=== PATIENT | female | born 1995 | race Caucasian/White ===

== ENCOUNTER 2016-05-27 17:00 | Emergency (ER) | payer OTHER | END 2016-05-27 17:45 | disposition home or self-care (01) | DX: J06.9 Acute upper respiratory infection, unspecified (principal); B97.89 Other viral agents as the cause of diseases classified elsewhere; J45.909 Unspecified asthma, uncomplicated; K21.9 Gastro-esophageal reflux disease without esophagitis; M79.7 Fibromyalgia; F17.200 Nicotine dependence, unspecified, uncomplicated ==

== ENCOUNTER 2016-06-11 13:50 | Outpatient (CLI) | payer OTHER | END 2016-06-11 13:51 | disposition home or self-care (01) | DX: S93.491A Sprain of other ligament of right ankle, initial encounter (principal); M65.9 Synovitis and tenosynovitis, unspecified ==

== ENCOUNTER 2016-07-11 11:50 | Emergency (ER) | payer OTHER | END 2016-07-11 14:04 | disposition home or self-care (01) | DX: O26.891 Other specified pregnancy related conditions, first trimester (principal); R10.9 Unspecified abdominal pain; O99.331 Smoking (tobacco) complicating pregnancy, first trimester; O99.351 Diseases of the nervous system complicating pregnancy, first trimester; M79.7 Fibromyalgia; Z3A.01 Less than 8 weeks gestation of pregnancy; J45.909 Unspecified asthma, uncomplicated; K21.9 Gastro-esophageal reflux disease without esophagitis ==

== ENCOUNTER 2016-09-23 13:49 | Emergency (ER) | payer OTHER ==
[2016-09-23] MEDS ORDERED: SODIUM CHLORIDE 0.9% 1,000 ML IV ONE (14:57)
[2016-09-23] MEDS ORDERED: LACTATED RINGERS 1,000 ML IV STA (15:55)
== END 2016-09-23 17:21 ==
DX: O60.02 Preterm labor without delivery, second trimester (principal); O16.2 Unspecified maternal hypertension, second trimester; Z3A.17 17 weeks gestation of pregnancy; J45.909 Unspecified asthma, uncomplicated; K21.9 Gastro-esophageal reflux disease without esophagitis; M79.7 Fibromyalgia

== ENCOUNTER 2016-09-23 17:15 | Outpatient (CLI) | payer OTHER | END 2016-09-23 20:00 | disposition home or self-care (01) | DX: O42.912 Preterm premature rupture of membranes, unspecified as to length of time between rupture and onset of labor, second trimester (principal); O16.2 Unspecified maternal hypertension, second trimester; O99.212 Obesity complicating pregnancy, second trimester; E66.9 Obesity, unspecified; Z3A.17 17 weeks gestation of pregnancy ==

== ENCOUNTER 2016-10-31 17:06 | Emergency (ER) | payer OTHER ==
--- NOTE | 2016-10-31 17:52 | ED Physician Documentation ---
PD HPI MHE - Stated complaint Stated Complaint: MHE - Chief complaint Chief Complaint: MHE - History obtained from History obtained from: Patient - History of Present Illness Primary symptom: Suicidal ideation Timing - onset: Chronic Pain level max: 0 Pain level now: 0 Contributing factors: No: Family, Sig other, Work, School, Money, Legal, Substance abuse - ETOH, Substance abuse - drugs, Off meds, Out of meds Similar symptoms before: Diagnosis (depression) Recently seen: Not recently seen - Additional information Additional information: Patient is a 21-year-old female who presents to the emergency department with vague suicidal ideation over the past few weeks. Has a psychiatrist that she sees monthly and a counselor that she sees weekly. Her next appointment is in 2 days. She was sent here for evaluation tonight because of increasing suicidal ideation over the past few weeks. Does not currently have a plan. Has been hospitalized once in the past approximately 15 years ago. Review of Systems Ten Systems: 10 systems reviewed and negative Constitutional: denies: Fever, Chills Ears: denies: Ear pain Nose: denies: Rhinorrhea / runny nose, Congestion Cardiac: denies: Chest pain / pressure Respiratory: denies: Cough, Wheezing GI: denies: Abdominal Pain, Nausea, Vomiting, Diarrhea : denies: Dysuria Skin: denies: Rash Musculoskeletal: denies: Neck pain, Back pain Neurologic: denies: Focal weakness, Numbness, Headache PD PAST MEDICAL HISTORY - Past Medical History Cardiovascular: Hypertension Respiratory: Asthma Neuro: Headache/migraine Endocrine/Autoimmune: Other GI: GERD 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 : None HEENT: None Psych: Depression, Anxiety, Bipolar disorder Musculoskeletal: Fibromyalgia, Other Derm: None - Past Surgical History Past Surgical History: Yes Ortho: Other - Present Medications Home Medications: Ambulatory Orders Medication Instructions Recorded Confirmed metFORMIN [Glucophage] 500 mg PO BID 05/25/15 10/31/16 Citalopram [CeleXA] 40 mg PO DAILY 08/16/15 10/31/16 Omeprazole [PriLOSEC] 20 mg ORAL DAILY 12/13/15 10/31/16 buPROPion [Wellbutrin Xl] 150 mg ORAL DAILY 12/13/15 10/31/16 Ibuprofen [Motrin] 800 mg PO Q8H PRN #30 tablet 04/16/16 10/31/16 Propranolol [Inderal] 20 mg PO DAILY 10/31/16 10/31/16 cloNIDine [Catapres] 1 tab PO DAILY PM 10/31/16 10/31/16 - Allergies Allergies/Adverse Reactions: Allergies Allergy/AdvReac Type Severity Reaction Status Date / Time No Known Drug Allergies Allergy Verified 10/31/16 17:21 - Social History Does the pt smoke?: No Smoking Status: Never smoker Does the pt drink ETOH?: No Does the pt have substance abuse?: No - Immunizations Immunizations are current?: Yes - POLST Patient has POLST: No PD ED PE NORMAL - Vitals Vital signs reviewed: Yes - General General: Alert and oriented X 3, No acute distress, Well developed/nourished - HEENT HEENT: PERRL, Moist mucous membranes - Neck Neck: Supple, no meningeal sign - Cardiac Cardiac: RRR, No murmur - Respiratory Respiratory: Clear bilaterally - Abdomen Abdomen: Normal bowel sounds, Soft, Non tender, Non distended - Derm Derm: Warm and dry - Extremities Extremities: Other (no cut ellis) - Neuro Neuro: Alert and oriented X 3 - Psych Psych: Normal mood, Normal affect Results - Vitals Vitals: Vital Signs - 24 hr 10/31/16 10/31/16 17:18 17:55 Temperature 36.4 C L Heart Rate 91 84 Respiratory 14 Rate Blood Pressure 124/85 H 134/90 H O2 Saturation 100 Oxygen O2 Source Room air PD MEDICAL DECISION MAKING - ED course Complexity details: reviewed old records, considered differential, d/w patient, d/w family ED course: Patient is a 21-year-old female with a long history of depression. Has been having suicidal thoughts recently, but no plan. She is able to contract for safety here. [facility] will not be dispatched by [facility] for voluntary patients. Gave the patient and her family the option of going home tonight and return in the morning for evaluation or staying here in the emergency department if they felt uncomfortable. As she is able to contract for safety, family is comfortable watching her at home and will return sooner if she worsens. Otherwise will plan to return in the morning for evaluation by social work. Patient and family counseled regarding signs and symptoms for which I believe and urgent re-evaluation would be necessary. Patient with good understanding of and agreement to plan and is comfortable going home at this time This document was made in part using voice recognition software. While efforts are made to proofread this document, sound alike and grammatical errors may occur. Departure - Departure Disposition: 01 Home, Self Care Clinical Impression: Depression Qualifiers: Depression Type: unspecified Qualified Code(s): F32.9 - Major depressive disorder, single episode, unspecified Condition: Good Instructions: ED Depression Follow-Up: Return,in the morning for further evaluation [Other] Comments: Return in the morning for further evaluation. Return sooner tonight if you worsen. Crisis Line Discharge Date/Time: 10/31/16 17:55
[2016-10-31 18:11] VITALS: BP 134/90
== END 2016-10-31 17:55 | disposition home or self-care (01) ==
LOC: ED 17:06
DX: F32.9 Major depressive disorder, single episode, unspecified (principal); R45.851 Suicidal ideations; I10 Essential (primary) hypertension
CPT/HCPCS: 99283

== ENCOUNTER 2016-11-01 07:45 | Emergency (ER) | payer OTHER ==
--- NOTE | 2016-11-01 07:53 | ED Physician Documentation ---
PD HPI MHE - Stated complaint Stated Complaint: MHE - History obtained from History obtained from: Patient - History of Present Illness Primary symptom: Suicidal ideation (without particular plan, but has had some urge feelings in the past few days. Did okay last night without any strong urges. Denies self harm, ingestions, alcohol nor drug use. Was here yesterday and contracted for safety overnight. Back today to talk with about possible inpatient treatment.). No: Suicide attempt Timing - onset: How many weeks ago (1-2 weeks or more of worsened depression, and has had suicidal urges without plan the past several days. Sees counselor weekly and psychiatrist monthly.) Contributing factors: No: Substance abuse - ETOH (not currently, had problems in the past.), Substance abuse - drugs Similar symptoms before: Diagnosis (depression) Recently seen: Clinic, Emergency Dept (yesterday and returned today to be able to talk with SW, who was out of hospital at time of ED visit yesterday.) Review of Systems Constitutional: denies: Fever, Chills Nose: denies: Rhinorrhea / runny nose, Congestion Throat: denies: Sore throat Cardiac: denies: Chest pain / pressure Respiratory: denies: Dyspnea GI: reports: Diarrhea (intermittent, chronic). denies: Nausea, Vomiting, Bloody / black stool : denies: Dysuria, Frequency Neurologic: denies: Focal weakness, Numbness, Near syncope, Altered mental status, Headache Psychiatric: reports: Depressed, Suicidal. 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, Miscarriage(s) (at 17 weeks EGA, on 09/23/16) : None HEENT: None Psych: Depression, Anxiety, Bipolar disorder Musculoskeletal: Fibromyalgia, Other Derm: None - Past Surgical History Past Surgical History: Yes Ortho: Other - Present Medications Home Medications: Ambulatory Orders Medication Instructions Recorded Confirmed metFORMIN [Glucophage] 500 mg PO BID 05/25/15 11/01/16 Citalopram [CeleXA] 40 mg PO DAILY 08/16/15 11/01/16 Omeprazole [PriLOSEC] 20 mg ORAL DAILY 12/13/15 11/01/16 buPROPion [Wellbutrin Xl] 150 mg ORAL DAILY 12/13/15 11/01/16 Ibuprofen [Motrin] 800 mg PO Q8H PRN #30 tablet 04/16/16 11/01/16 Propranolol [Inderal] 20 mg PO DAILY 10/31/16 11/01/16 cloNIDine [Catapres] 1 tab PO DAILY PM 10/31/16 11/01/16 Ferrous Sulfate 325 mg PO DAILY #30 tablet 11/01/16 - Allergies Allergies/Adverse Reactions: Allergies Allergy/AdvReac Type Severity Reaction Status Date / Time No Known Drug Allergies Allergy Verified 11/01/16 08:04 - Social History Does the pt smoke?: No Smoking Status: Never smoker Does the pt drink ETOH?: No Does the pt have substance abuse?: No - Immunizations Immunizations are current?: Yes - POLST Patient has POLST: No PD ED PE NORMAL - Vitals Vital signs reviewed: Yes - General General: Alert and oriented X 3, Well developed/nourished, Other (slightly depressed affect, but pleasant and talkative. ) - HEENT HEENT: Atraumatic - Neck Neck: Supple, no meningeal sign, No adenopathy - Cardiac Cardiac: RRR, No murmur - Respiratory Respiratory: Clear bilaterally - Derm Derm: Normal color, Warm and dry - Neuro Neuro: Alert and oriented X 3, No motor deficit, Normal speech - Psych Psych: Normal mood. No: Normal affect (sad) Results - Vitals Vitals: Vital Signs - 24 hr 11/01/16 11/01/16 11/01/16 07:51 12:49 15:36 Temperature 36.5 C Heart Rate 99 72 77 Respiratory 20 16 16 Rate Blood Pressure 146/103 H 125/81 H 121/67 O2 Saturation 100 97 97 Oxygen O2 Source Room air - Labs Labs: Laboratory Tests 11/01/16 11/01/16 11/01/16 08:58 08:58 08:58 WBC 5.8 RBC 4.46 Hgb 9.7 L Hct 30.5 L MCV 68.5 L MCH 21.7 L MCHC 31.7 L RDW 16.5 H Plt Count 234 MPV 7.0 L Neut # 2.4 Lymph # 2.6 [place] # 0.7 Eos # 0.1 Baso # 0.1 Absolute Nucleated RBC 0.00 Nucleated RBCs 0.0 Manual Slide Review Indicated RBC Morph Micro Appear 2+ MICROCYTOSIS Sodium 140 Potassium 4.0 Chloride 105 Carbon Dioxide 25 Anion Gap 10.0 BUN 10 Creatinine 0.8 Estimated GFR (MDRD) 89 Glucose 92 Calcium 9.1 Magnesium 1.9 Total Bilirubin 0.6 AST 25 ALT 23 Alkaline Phosphatase 79 Total Protein 7.1 Albumin 3.9 Globulin 3.2 Albumin/Globulin Ratio 1.2 Lipase 19 L TSH 1.22 Urine Color Urine Clarity Urine pH Ur Specific [place] Urine Protein Urine Glucose (UA) Urine Ketones Urine Occult Blood Urine Nitrite Urine Bilirubin Urine Urobilinogen Ur Leukocyte Esterase Ur Microscopic Review Urine Culture Comments Urine HCG, Qual Urine Opiates Screen Ur Oxycodone Screen Urine Methadone Screen Ur Propoxyphene Screen Ur Barbiturates Screen Ur Tricyclics Screen Ur Phencyclidine Scrn Ur Amphetamine Screen U Methamphetamines Scrn U Benzodiazepines Scrn Urine Cocaine Screen U Cannabinoids Screen Ethyl Alcohol < 5.0 11/01/16 11/01/16 09:25 09:25 WBC RBC Hgb Hct MCV MCH MCHC RDW Plt Count MPV Neut # Lymph # [place] # Eos # Baso # Absolute Nucleated RBC Nucleated RBCs Manual Slide Review RBC Morph Micro Appear Sodium Potassium Chloride Carbon Dioxide Anion Gap BUN Creatinine Estimated GFR (MDRD) Glucose Calcium Magnesium Total Bilirubin AST ALT Alkaline Phosphatase Total Protein Albumin Globulin Albumin/Globulin Ratio Lipase TSH Urine Color YELLOW Urine Clarity CLEAR Urine pH 6.0 Ur Specific [place] 1.020 Urine Protein NEGATIVE Urine Glucose (UA) NEGATIVE Urine Ketones NEGATIVE Urine Occult Blood NEGATIVE Urine Nitrite NEGATIVE Urine Bilirubin NEGATIVE Urine Urobilinogen 0.2 (NORMAL) Ur Leukocyte Esterase NEGATIVE Ur Microscopic Review NOT INDICATED Urine Culture Comments NOT INDICATED Urine HCG, Qual NEGATIVE Urine Opiates Screen NEGATIVE Ur Oxycodone Screen NEGATIVE Urine Methadone Screen NEGATIVE Ur Propoxyphene Screen NEGATIVE Ur Barbiturates Screen NEGATIVE Ur Tricyclics Screen NEGATIVE Ur Phencyclidine Scrn NEGATIVE Ur Amphetamine Screen NEGATIVE U Methamphetamines Scrn NEGATIVE U Benzodiazepines Scrn NEGATIVE Urine Cocaine Screen NEGATIVE U Cannabinoids Screen NEGATIVE Ethyl Alcohol PD MEDICAL DECISION MAKING - ED course Complexity details: reviewed old records, reviewed results, d/w patient, d/w documentum consultant (Social Work, Bri) Departure - Departure Disposition: 65 Psych Hosp/Unit DC/Xfer Clinical Impression: Suicidal ideation Depression Qualifiers: Depression Type: major depressive disorder Major depression recurrence: single episode Active/Remission status: currently active Major depression episode severity: severe Psychotic features: without psychotic features Qualified Code(s ): F32.2 - Major depressive disorder, single episode, severe without psychotic features Anemia Qualifiers: Anemia type: unspecified type Qualified Code(s): D64.9 - Anemia, unspecified Condition: Stable Record reviewed to determine appropriate education?: Yes Prescriptions: Ferrous Sulfate 325 mg PO DAILY #30 tablet Discharge Date/Time: 11/01/16 16:10
[2016-11-01 09:19] LABS: ALBUMIN/GLOBULIN RATIO 1.2 (1.0-2.2); BILIRUBIN,TOTAL 0.6 mg/dL (0.2-1.0); BUN - BLOOD UREA NITROGEN 10 mg/dL (6-20); CALCIUM 9.1 mg/dL (8.5-10.3); CARBON DIOXIDE - CO2 25 mmol/L (21-32); CHLORIDE 105 mmol/L (101-111); CREATININE 0.8 mg/dL (0.4-1.0); GFR - MDRD 89 (>89); GLUCOSE 92 mg/dL (70-100); LIPASE 19 U/L (22-51); MAGNESIUM 1.9 mg/dL (1.7-2.8); SODIUM 140 mmol/L (135-145); TOTAL PROTEIN 7.1 g/dL (6.7-8.2)
[2016-11-01 09:28] LABS: BASOPHILS # (AUTO) 0.1 10^3/uL (0.0-0.1); BASOPHILS % (AUTO) 1.2 %; EOSINOPHILS # (AUTO) 0.1 10^3/uL (0.0-0.7); EOSINOPHILS % (AUTO) 1.8 %; HCT - HEMATOCRIT 30.5 % (37.0-47.0); HGB - HEMOGLOBIN 9.7 g/dL (12.0-16.0); LYMPHOCYTES # (AUTO) 2.6 10^3/uL (1.5-3.5); MEAN CORPUSCULAR HEMOGLOBIN 21.7 pg (27.0-31.0); MEAN CORPUSCULAR HGB CONC 31.7 g/dL (32.0-36.0); MEAN CORPUSCULAR VOLUME 68.5 fL (81.0-99.0); MONOCYTES # (AUTO) 0.7 10^3/uL (0.0-1.0); MONOCYTES % (AUTO) 11.6 %; NEUTROPHILS # (AUTO) 2.4 10^3/uL (1.5-6.6); NEUTROPHILS % (AUTO) 41.4 %; RED BLOOD COUNT 4.46 10^6/uL (4.20-5.40); RED CELL DISTRIBUTION WIDTH 16.5 % (12.0-15.0); UNCORRECTED WHITE BLOOD COUNT 5.8 x10^3/uL; WHITE BLOOD COUNT 5.8 x10^3/uL (4.8-10.8)
[2016-11-01 10:03] LABS: BILIRUBIN,URINE NEGATIVE (NEGATIVE)
[2016-11-01 10:09] LABS: HCG UR QUAL NEGATIVE; UA CHARGE (STRIP ONLY) YES; UR CULTURE IF IND NOT INDICATED
[2016-11-01] MEDS ORDERED: FERROUS SULFATE 325 MG TABLET PO STA (15:06)
[2016-11-01 15:37] VITALS: BP 121/67
== END 2016-11-01 16:10 ==
LOC: ED 07:45
DX: F32.9 Major depressive disorder, single episode, unspecified (principal); R45.851 Suicidal ideations; D64.9 Anemia, unspecified; I10 Essential (primary) hypertension; J45.909 Unspecified asthma, uncomplicated; K21.9 Gastro-esophageal reflux disease without esophagitis; M79.7 Fibromyalgia
CPT/HCPCS: 36415; 80053; 80306; 80320; 81003; 81025; 83690; 83735; 84443; 85025; 99284; 99285; A9270; 81001; 87086; 99283

== ENCOUNTER 2017-01-03 10:58 | Outpatient (CLI) | payer OTHER ==
--- NOTE | 2017-01-03 17:21 | XRAY Report ---
TWO VIEW ABDOMEN: 01/03/2017 HISTORY: Abdominal pain. FINDINGS: The bowel gas pattern is nonspecific. There is no free air or pneumatosis. There are no definite calcified renal or ureteral stones. Scoliosis is incidental in the lumbar spine. NOTE: The examination is limited by body habitus, question nonspecific bowel gas pattern. JOB #: [id number] EXT JOB #:[id number]
== END 2017-01-03 10:59 | disposition home or self-care (01) ==
LOC: DI.S 10:58
PROVIDERS: ATTEND Nurse Practitioner Family
DX: R19.7 Diarrhea, unspecified (principal); R10.30 Lower abdominal pain, unspecified
CPT/HCPCS: 74020

== ENCOUNTER 2017-01-13 11:06 | Outpatient (CLI) | payer MEDICAID ==
[2017-01-13 17:35] LABS: BASOPHILS % (AUTO) 0.7 %; EOSINOPHILS # (AUTO) 0.1 10^3/uL (0.0-0.7); EOSINOPHILS % (AUTO) 1.2 %; HCT - HEMATOCRIT 33.8 % (37.0-47.0); HGB - HEMOGLOBIN 10.4 g/dL (12.0-16.0); LYMPHOCYTES # (AUTO) 2.3 10^3/uL (1.5-3.5); LYMPHOCYTES % (AUTO) 34.4 %; MEAN CORPUSCULAR HGB CONC 30.8 g/dL (32.0-36.0); MEAN PLATELET VOLUME 8.4 fL (7.9-10.8); MONOCYTES # (AUTO) 0.6 10^3/uL (0.0-1.0); MONOCYTES % (AUTO) 8.7 %; NEUTROPHILS # (AUTO) 3.7 10^3/uL (1.5-6.6); RED BLOOD COUNT 5.19 10^6/uL (4.20-5.40); RED CELL DISTRIBUTION WIDTH 17.7 % (12.0-15.0); UNCORRECTED WHITE BLOOD COUNT 6.8 x10^3/uL; WHITE BLOOD COUNT 6.8 x10^3/uL (4.8-10.8)
[2017-01-13 18:00] LABS: ALBUMIN/GLOBULIN RATIO 1.2 (1.0-2.2); BILIRUBIN,TOTAL 0.2 mg/dL (0.2-1.0); CALCIUM 9.4 mg/dL (8.5-10.3); CREATININE 0.7 mg/dL (0.4-1.0); POTASSIUM 4.2 mmol/L (3.5-5.0); TOTAL PROTEIN 7.7 g/dL (6.7-8.2)
[2017-01-13 18:05] LABS: FERRITIN 4.4 ng/mL (11.0-306.8)
[2017-01-13 18:38] LABS: PLATELET ESTIMATE, MANUAL NORMAL (130-450,000) (NORMAL); PLATELET MORPHOLOGY NORMAL APPEARANCE (NORMAL)
== END 2017-01-13 11:07 | disposition home or self-care (01) ==
LOC: LAB.F 11:06
PROVIDERS: ATTEND Nurse Practitioner Family
DX: D50.9 Iron deficiency anemia, unspecified (principal); R19.7 Diarrhea, unspecified; R10.30 Lower abdominal pain, unspecified
CPT/HCPCS: 36415; 80053; 82607; 82728; 83540; 84466; 85025; 85651; 86140

== ENCOUNTER 2017-01-16 08:37 | Outpatient (CLI) | payer MEDICAID | END 2017-01-16 08:38 | disposition critical access hospital (66) | LOC: EMS 08:37 | PROVIDERS: ATTEND Surgery | DX: R52 Pain, unspecified (principal); R42 Dizziness and giddiness | CPT/HCPCS: A0425; A0427 ==

== ENCOUNTER 2017-01-16 09:07 | Emergency (ER) | payer MEDICAID ==
[2017-01-16] MEDS ORDERED: SODIUM CHLORIDE 0.9% 1,000 ML IV ONE ×2 (10:24→13:21)
--- NOTE | 2017-01-16 10:27 | ED Physician Documentation ---
PD HPI NVD - Stated complaint Stated Complaint: PAIN ALL OVER - Chief complaint Chief Complaint: Abd Pain - History obtained from History obtained from: Patient, Family - History of Present Illness Timing - onset: How many days ago (4) Timing - duration: Days (4) Timing - details: Abrupt onset, Still present Associated symptoms: Abdominal pain, Dizzy, Near syncope / syncope Contributing factors: Other (Chronic diarrhea) Improved by: Laying still Similar symptoms before: Work up / diagnostics (Patient is in progress for a workup of Crohn's disease.) Recently seen: Clinic (Patient is being seen for her diarrhea and workup is in process.), Emergency Dept - Additonal information Additional information: 21-year-old female with chronic diarrhea has developed worsening diarrhea for the past 4 days. She usually is having loose stool 2-3 times a day and now is having diarrhea up to 10 times per day. She has some abdominal cramping associated with this and this morning she was on the commode when she had a syncopal episode. Her mother called the ambulance and she has been transported to the hospital. The patient indicates that she fell 3 days ago on the steps of a friend's house and has some pain in her back and legs. Review of Systems Constitutional: reports: Fatigue. denies: Fever, Chills Eyes: denies: Decreased vision Ears: denies: Ear pain Nose: denies: Rhinorrhea / runny nose, Congestion Throat: denies: Sore throat Cardiac: denies: Chest pain / pressure, Palpitations Respiratory: denies: Dyspnea, Cough GI: reports: Abdominal Pain, Nausea, Diarrhea : denies: Dysuria, Frequency Skin: denies: Rash Musculoskeletal: reports: Back pain, Extremity pain. denies: Neck pain Neurologic: reports: Generalized weakness. 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, Miscarriage(s) : None HEENT: None Psych: Depression, Anxiety, Bipolar disorder Musculoskeletal: Fibromyalgia, Other Derm: None - Past Surgical History Past Surgical History: Yes Ortho: Other - Present Medications Home Medications: Ambulatory Orders Medication Instructions Recorded Confirmed metFORMIN [Glucophage] 500 mg PO BID 05/25/15 11/01/16 Omeprazole [PriLOSEC] 20 mg ORAL DAILY 12/13/15 11/01/16 Propranolol [Inderal] 20 mg PO DAILY 10/31/16 11/01/16 cloNIDine [Catapres] 1 tab PO DAILY PM 10/31/16 11/01/16 Ferrous Sulfate 325 mg PO DAILY #30 tablet 11/01/16 Citalopram [CeleXA] 40 mg PO DAILY 01/16/17 01/16/17 Lamotrigine [Lamotrigine ER] 25 mg PO 01/16/17 Ondansetron Odt [Zofran] 4 mg TL Q6H PRN #10 tablet 01/16/17 - Allergies Allergies/Adverse Reactions: Allergies Allergy/AdvReac Type Severity Reaction Status Date / Time No Known Drug Allergies Allergy Verified 01/16/17 09:22 - Social History Does the pt smoke?: No Smoking Status: Never smoker Does the pt drink ETOH?: No Does the pt have substance abuse?: No - Immunizations Immunizations are current?: Yes - POLST Patient has POLST: No PD ED PE NORMAL - Vitals Vital signs reviewed: Yes (Normal) - General General: No acute distress, Well developed/nourished, Other (The patient appears to be having a hard time keeping her eyes open. She seems to drift off to sleep easily and otherwise answers questions appropriately.) - HEENT HEENT: Atraumatic, PERRL, EOMI - Neck Neck: Supple, no meningeal sign - Cardiac Cardiac: RRR, No murmur - Respiratory Respiratory: No respiratory distress, Clear bilaterally - Abdomen Abdomen: Soft, Non tender - Back Back: No CVA TTP, No spinal TTP - Derm Derm: Normal color, Warm and dry, No rash - Extremities Extremities: No deformity, No edema - Neuro Neuro: No motor deficit, No sensory deficit, Normal speech Results - Vitals Vitals: Vital Signs - 24 hr 01/16/17 01/16/17 09:18 10:31 Temperature 37.1 C Heart Rate 68 63 Respiratory 15 16 Rate Blood Pressure 130/68 118/70 O2 Saturation 98 98 Oxygen O2 Source Room air - Labs Labs: Laboratory Tests 01/16/17 01/16/17 01/16/17 10:56 10:56 10:56 WBC 6.6 RBC 4.93 Hgb 9.9 L Hct 31.8 L MCV 64.5 L MCH 20.0 L MCHC 31.0 L RDW 17.3 H Plt Count 316 MPV 7.6 L Neut # 3.2 Lymph # 2.6 [place] # 0.6 Eos # 0.1 Baso # 0.0 Absolute Nucleated RBC 0.00 Nucleated RBCs 0.0 Sodium 140 Potassium 3.6 Chloride 107 Carbon Dioxide 26 Anion Gap 7.0 BUN 10 Creatinine 0.8 Estimated GFR (MDRD) 89 Glucose 88 Lactic Acid 0.8 Calcium 9.1 Total Bilirubin 0.5 AST 21 ALT 22 Alkaline Phosphatase 87 Total Protein 7.4 Albumin 4.1 Globulin 3.3 Albumin/Globulin Ratio 1.2 Lipase 22 Urine Color Urine Clarity Urine pH Ur Specific [place] Urine Protein Urine Glucose (UA) Urine Ketones Urine Occult Blood Urine Nitrite Urine Bilirubin Urine Urobilinogen Ur Leukocyte Esterase Ur Microscopic Review Urine Culture Comments 01/16/17 12:10 WBC RBC Hgb Hct MCV MCH MCHC RDW Plt Count MPV Neut # Lymph # [place] # Eos # Baso # Absolute Nucleated RBC Nucleated RBCs Sodium Potassium Chloride Carbon Dioxide Anion Gap BUN Creatinine Estimated GFR (MDRD) Glucose Lactic Acid Calcium Total Bilirubin AST ALT Alkaline Phosphatase Total Protein Albumin Globulin Albumin/Globulin Ratio Lipase Urine Color YELLOW Urine Clarity CLEAR Urine pH 6.0 Ur Specific [place] 1.020 Urine Protein NEGATIVE Urine Glucose (UA) NEGATIVE Urine Ketones NEGATIVE Urine Occult Blood NEGATIVE Urine Nitrite NEGATIVE Urine Bilirubin NEGATIVE Urine Urobilinogen 0.2 (NORMAL) Ur Leukocyte Esterase NEGATIVE Ur Microscopic Review NOT INDICATED Urine Culture Comments NOT INDICATED - Rads (name of study) CT abd/pel with Radiology: Prelim report reviewed (Impression: 1. No evidence for abdominal/ pelvic mass or inflammatory process.2. Fatty liver.), EMP read indepedently, See rad report Procedures - IVC sono (time) 1020 Bedside IVC sono: IVC measures (cm) (1.00), IVC collapsed c insp (cm) (complete) , Dehydration PD MEDICAL DECISION MAKING - ED course Complexity details: reviewed old records, reviewed results, re-evaluated patient , considered differential, d/w patient, d/w family ED course: 21-year-old female with increased diarrhea is dehydrated and has normal electrolytes and blood counts. She is given intravenous saline here in the emergency department a CT scan of the abdomen and pelvis is obtained without acute findings and without evidence of obvious colitis. Departure - Departure Disposition: Home, Self Care Clinical Impression: Dehydration, Gastroenteritis Condition: Stable Instructions: ED Dehydration, ED Gastroenteritis Non Infec Follow-Up: Leslie Torres ARNP [Primary Care Provider] - Prescriptions: Ondansetron Odt [Zofran] 4 mg TL Q6H PRN #10 tablet PRN Reason: Nausea / Vomiting
[2017-01-16 11:15] LABS: BASOPHILS % (AUTO) 0.7 %; EOSINOPHILS # (AUTO) 0.1 10^3/uL (0.0-0.7); EOSINOPHILS % (AUTO) 1.4 %; HCT - HEMATOCRIT 31.8 % (37.0-47.0); HGB - HEMOGLOBIN 9.9 g/dL (12.0-16.0); LYMPHOCYTES # (AUTO) 2.6 10^3/uL (1.5-3.5); LYMPHOCYTES % (AUTO) 40.1 %; MEAN CORPUSCULAR VOLUME 64.5 fL (81.0-99.0); MEAN PLATELET VOLUME 7.6 fL (7.9-10.8); MONOCYTES # (AUTO) 0.6 10^3/uL (0.0-1.0); MONOCYTES % (AUTO) 9.5 %; NEUTROPHILS # (AUTO) 3.2 10^3/uL (1.5-6.6); NEUTROPHILS % (AUTO) 48.3 %; RED BLOOD COUNT 4.93 10^6/uL (4.20-5.40); RED CELL DISTRIBUTION WIDTH 17.3 % (12.0-15.0); UNCORRECTED WHITE BLOOD COUNT 6.6 x10^3/uL; WHITE BLOOD COUNT 6.6 x10^3/uL (4.8-10.8)
[2017-01-16 11:23] LABS: ALBUMIN/GLOBULIN RATIO 1.2 (1.0-2.2); BILIRUBIN,TOTAL 0.5 mg/dL (0.2-1.0); CALCIUM 9.1 mg/dL (8.5-10.3); CREATININE 0.8 mg/dL (0.4-1.0); POTASSIUM 3.6 mmol/L (3.5-5.0); TOTAL PROTEIN 7.4 g/dL (6.7-8.2)
[2017-01-16] MEDS ORDERED: IOPAMIDOL-300 100 ML VIAL IVP ONE (11:44)
--- NOTE | 2017-01-16 11:56 | CT Preliminary Report ---
Exam: CT Abdomen/Pelvis W/ IMPRESSION: 1. No evidence for abdominal/pelvic mass or inflammatory process. 2. Fatty liver. [facility] SITE ID: [id number]
--- NOTE | 2017-01-16 11:59 | CT Report ---
EXAM: CT ABDOMEN AND PELVIS EXAM DATE: 01/16/2017 11:42 AM. CLINICAL HISTORY: Abdominal pain chronic diarrhea. COMPARISONS: Abdominal CT 07/16/2007. TECHNIQUE: Routine helical CT imaging was performed through the abdomen and pelvis. IV contrast: 100 cc Isovue-370. Enteric contrast: No. Reconstructions: Coronal and sagittal. In accordance with CT protocol optimization, one or more of the following dose reduction techniques w ere utilized for this exam: automated exposure control, adjustment of mA and/or KV based on patient s ize, or use of iterative reconstructive technique. FINDINGS: Lung Bases: Unremarkable. Liver: Fatty liver. No mass evident. Gallbladder/Bile Ducts: Unremarkable. Spleen: Normal. Pancreas: Normal. Adrenal Glands: Normal. Kidneys: Normal. No masses or hydronephrosis. Peritoneal Cavity/Bowel: Normal. No free fluid, free air or adenopathy. No masses or acute inflammato ry process. The appendix is well visualized and normal. Pelvic Organs: Normal. The bladder and visualized pelvic organs are within normal limits. Vasculature: No aneurysms or other significant abnormality. Bones: Complex left midthoracic and convex right thoracolumbar scoliosis. Mild degenerative changes o f the thoracolumbar spine. Other: None. IMPRESSION: 1. No evidence for abdominal/pelvic mass or inflammatory process. 2. Fatty liver. [facility] Referring Provider Line: [phone] SITE ID: [id number]
[2017-01-16 12:18] LABS: BILIRUBIN,URINE NEGATIVE (NEGATIVE)
[2017-01-16 12:20] LABS: UA CHARGE (STRIP ONLY) YES; UR CULTURE IF IND NOT INDICATED
[2017-01-16 13:24] VITALS: BP 116/62
== END 2017-01-16 14:25 | disposition home or self-care (01) ==
LOC: EDUNIT# → ED 09:07
DX: E86.0 Dehydration (principal); K52.9 Noninfective gastroenteritis and colitis, unspecified; I10 Essential (primary) hypertension; J45.909 Unspecified asthma, uncomplicated; M79.7 Fibromyalgia; K21.9 Gastro-esophageal reflux disease without esophagitis; K50.90 Crohn's disease, unspecified, without complications
CPT/HCPCS: 36415; 74177; 80053; 81003; 83605; 83690; 85025; 87040; 96360; 99283; 99284; Q9967; 81001; 87045; 87046; 87086

== ENCOUNTER → 2017-01-31 | Outpatient (CLI) | payer MEDICAID | LOC: LAB.F 08:00 | PROVIDERS: ATTEND Psychiatry & Neurology Psychiatry | DX: L73.2 Hidradenitis suppurativa (principal); Z79.899 Other long term (current) drug therapy; F10.20 Alcohol dependence, uncomplicated; F33.9 Major depressive disorder, recurrent, unspecified; F41.9 Anxiety disorder, unspecified; F43.12 Post-traumatic stress disorder, chronic; G47.00 Insomnia, unspecified ==

== ENCOUNTER 2017-02-28 12:46 | Outpatient (CLI) | payer MEDICAID ==
[2017-02-28 13:16] LABS: BASOPHILS # (AUTO) 0.1 10^3/uL (0.0-0.1); BASOPHILS % (AUTO) 0.6 %; EOSINOPHILS # (AUTO) 0.1 10^3/uL (0.0-0.7); EOSINOPHILS % (AUTO) 1.2 %; HCT - HEMATOCRIT 35.5 % (37.0-47.0); HGB - HEMOGLOBIN 11.3 g/dL (12.0-16.0); LYMPHOCYTES # (AUTO) 2.9 10^3/uL (1.5-3.5); LYMPHOCYTES % (AUTO) 34.3 %; MEAN CORPUSCULAR HEMOGLOBIN 21.8 pg (27.0-31.0); MEAN CORPUSCULAR HGB CONC 31.8 g/dL (32.0-36.0); MEAN CORPUSCULAR VOLUME 68.8 fL (81.0-99.0); MEAN PLATELET VOLUME 7.5 fL (7.9-10.8); MONOCYTES # (AUTO) 0.7 10^3/uL (0.0-1.0); MONOCYTES % (AUTO) 7.9 %; NEUTROPHILS # (AUTO) 4.8 10^3/uL (1.5-6.6); RED BLOOD COUNT 5.16 10^6/uL (4.20-5.40); UNCORRECTED WHITE BLOOD COUNT 8.5 x10^3/uL; WHITE BLOOD COUNT 8.5 x10^3/uL (4.8-10.8)
[2017-02-28 13:35] LABS: HCG UR QUAL NEGATIVE
[2017-02-28 13:42] LABS: ALBUMIN/GLOBULIN RATIO 1.3 (1.0-2.2); BILIRUBIN,TOTAL 0.4 mg/dL (0.2-1.0); CALCIUM 9.3 mg/dL (8.5-10.3); CREATININE 0.7 mg/dL (0.4-1.0); POTASSIUM 4.1 mmol/L (3.5-5.0); TOTAL PROTEIN 7.2 g/dL (6.7-8.2)
[2017-02-28 13:43] LABS: PLATELET ESTIMATE, MANUAL NORMAL (130-450,000) (NORMAL); PLATELET MORPHOLOGY NORMAL APPEARANCE (NORMAL)
[2017-02-28 13:44] LABS: SLIDE SENT FOR PATH REVIEW? Indicated
[2017-02-28 13:46] LABS: CBC SPECIMEN NUMBER 759463; PATHOLOGIST REVIEW ORDER PATH SLIDE REVIEW
[2017-03-02 20:21] LABS: TEST RESULT REPORT
== END 2017-02-28 12:47 | disposition home or self-care (01) ==
LOC: LAB 12:46
PROVIDERS: ATTEND Nurse Practitioner Family
DX: F10.20 Alcohol dependence, uncomplicated (principal); F33.9 Major depressive disorder, recurrent, unspecified; F41.9 Anxiety disorder, unspecified; F43.12 Post-traumatic stress disorder, chronic; G47.00 Insomnia, unspecified
CPT/HCPCS: 36415; 80053; 80306; 80320; 81025; 81599; 85025; 86480; 87340; 87350

== ENCOUNTER 2017-03-09 08:00 | Outpatient (CLI) | payer MEDICAID ==
[2017-03-09 18:15] LABS: BASOPHILS # (AUTO) 0.1 10^3/uL (0.0-0.1); BASOPHILS % (AUTO) 0.6 %; EOSINOPHILS # (AUTO) 0.1 10^3/uL (0.0-0.7); EOSINOPHILS % (AUTO) 1.1 %; HCT - HEMATOCRIT 36.8 % (37.0-47.0); HGB - HEMOGLOBIN 11.6 g/dL (12.0-16.0); IRON 14 ug/dL (28-170); LYMPHOCYTES # (AUTO) 3.2 10^3/uL (1.5-3.5); LYMPHOCYTES % (AUTO) 33.1 %; MEAN CORPUSCULAR HEMOGLOBIN 22.8 pg (27.0-31.0); MEAN CORPUSCULAR HGB CONC 31.6 g/dL (32.0-36.0); MEAN PLATELET VOLUME 8.3 fL (7.9-10.8); MONOCYTES # (AUTO) 0.7 10^3/uL (0.0-1.0); MONOCYTES % (AUTO) 7.3 %; NEUTROPHILS # (AUTO) 5.6 10^3/uL (1.5-6.6); NEUTROPHILS % (AUTO) 57.9 %; RED BLOOD COUNT 5.11 10^6/uL (4.20-5.40); RED CELL DISTRIBUTION WIDTH 26.4 % (12.0-15.0); TOTAL IRON BINDING CAPACITY 409 ug/dL (250-450); TRANSFERRIN 292 mg/dL (192-382); UNCORRECTED WHITE BLOOD COUNT 9.6 x10^3/uL; WHITE BLOOD COUNT 9.6 x10^3/uL (4.8-10.8)
[2017-03-09 18:36] LABS: PLATELET ESTIMATE, MANUAL NORMAL (130-450,000) (NORMAL); PLATELET MORPHOLOGY NORMAL APPEARANCE (NORMAL); WBC MORPHOLOGY (MULTIPLE) NORMAL APPEARANCE (NORMAL)
== END 2017-03-09 08:01 | disposition home or self-care (01) ==
LOC: LAB.F 08:00
PROVIDERS: ATTEND Nurse Practitioner Family
DX: D50.9 Iron deficiency anemia, unspecified (principal)
CPT/HCPCS: 36415; 82728; 83540; 84466; 85025

== ENCOUNTER 2017-04-07 07:54 | Outpatient (CLI) | payer MEDICAID ==
--- NOTE | 2017-04-07 12:27 | CT Report ---
CT SINUSES WITHOUT CONTRAST: 04/07/2017 CLINICAL INDICATION: Sinusitis. TECHNIQUE: Axial CT images of the paranasal sinuses were obtained without intravenous contrast, foll owing which sagittal and coronal reconstructions were performed. In accordance with CT protocol optimization, one or more of the following dose reduction techniques w ere utilized for this exam: automated exposure control, adjustment of mA and/or KV based on patient size, or use of iterative reconstructive technique. FINDINGS: The frontal sinuses, ethmoid air cells, and maxillary sinuses are clear. There is mucosal thickening in the sphenoid sinus. The ostiomeatal units are patent bilaterally. There is leftward deviation of the septum. [place] air cells are noted bilaterally. No osseous destruction is seen. T he visualized orbital contents are unremarkable. IMPRESSION: CHRONIC SPHENOID SINUS DISEASE. JOB #: [id number] EXT JOB #:[id number]
== END 2017-04-07 07:55 | disposition home or self-care (01) ==
LOC: DI 07:54
PROVIDERS: ATTEND Otolaryngology
DX: J32.3 Chronic sphenoidal sinusitis (principal)
CPT/HCPCS: 70486

== ENCOUNTER 2017-06-07 14:18 | Emergency (ER) | payer MEDICAID ==
[2017-06-07 14:44] VITALS: BP 134/78
[2017-06-07 14:57] LABS: BILIRUBIN,URINE NEGATIVE (NEGATIVE); GLUCOSE, URINE (UA) NEGATIVE (NEGATIVE); KETONES,URINE (UA) NEGATIVE (NEGATIVE); LEUKOCYTE ESTERASE, URINE NEGATIVE (NEGATIVE); NITRITE,URINE NEGATIVE (NEGATIVE); OCCULT BLOOD,URINE NEGATIVE (NEGATIVE); PH,URINE 7.5 PH (5.0-7.5); PROTEIN,URINE NEGATIVE (NEGATIVE); UROBILINOGEN,URINE 0.2 (NORMAL) E.U./dL (NORMAL)
[2017-06-07 15:07] LABS: CLARITY,URINE CLEAR (CLEAR)
[2017-06-07 15:08] LABS: HCG UR QUAL NEGATIVE
--- NOTE | 2017-06-07 15:30 | ED Physician Documentation ---
PD HPI FEMALE - Stated complaint Stated Complaint: FEMALE - Chief complaint Chief Complaint: UTI - History obtained from History obtained from: Patient - History of Present Illness Timing - onset: How many days ago (5) Timing - duration: Days (5) Timing - details: Gradual onset, Still present Associated symptoms: Urinary frequency, Hematuria, Other (urgency) Contributing factors: Exposed to STD (possible) Similar symptoms before: Diagnosis (UTI) Recently seen: Not recently seen - Additional information Additional information: 22-year-old female has developed some urinary urgency and frequency about 1 week ago. She has had persistence of her symptoms and when she developed some bleeding in the urine this morning she is come to the emergency department for evaluation of urinary tract infection. She does not have any other specific symptoms and does not feel ill. She denies any pain or flank she denies any nausea. She has had chlamydia previously and she is concerned that she may have contacted this again as she did not have symptoms when she had chlamydia previously Review of Systems Constitutional: denies: Fever, Chills, Myalgias, Fatigue, Sweats Nose: denies: Congestion Respiratory: denies: Cough GI: denies: Abdominal Pain, Nausea, Vomiting : reports: Frequency, Hematuria. 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, Miscarriage(s) : None HEENT: None Psych: Depression, Anxiety, Bipolar disorder Musculoskeletal: Fibromyalgia, Other Derm: None - Past Surgical History Past Surgical History: Yes Ortho: Other - Present Medications Home Medications: Ambulatory Orders Medication Instructions Recorded Confirmed metFORMIN [Glucophage] 500 mg PO BID 05/25/15 06/07/17 Omeprazole [PriLOSEC] 20 mg ORAL DAILY 12/13/15 06/07/17 Propranolol [Inderal] 20 mg PO DAILY 10/31/16 06/07/17 Ferrous Sulfate 325 mg PO DAILY #30 tablet 11/01/16 06/07/17 Citalopram [CeleXA] 40 mg PO DAILY 01/16/17 06/07/17 Lamotrigine [Lamotrigine ER] 200 mg PO DAILY 01/16/17 06/07/17 Ondansetron Odt [Zofran] 4 mg TL Q6H PRN #10 tablet 01/16/17 06/07/17 Guanfacine HCl 1 mg PO DAILY 06/07/17 06/07/17 - Allergies Allergies/Adverse Reactions: Allergies Allergy/AdvReac Type Severity Reaction Status Date / Time No Known Drug Allergies Allergy Verified 01/16/17 09:22 - Social History Does the pt smoke?: No Smoking Status: Never smoker Does the pt drink ETOH?: No Does the pt have substance abuse?: No - Immunizations Immunizations are current?: Yes - POLST Patient has POLST: No PD ED PE NORMAL - Vitals Vital signs reviewed: Yes (Hypertensive) - General General: Alert and oriented X 3, No acute distress, Well developed/nourished - Neck Neck: Supple, no meningeal sign, No bony TTP - Respiratory Respiratory: No respiratory distress - Derm Derm: Normal color, Warm and dry, No rash - Extremities Extremities: No deformity, No edema - Neuro Neuro: Alert and oriented X 3, No motor deficit, No sensory deficit, Normal speech Eye Opening: Spontaneous Motor: Obeys Commands Verbal: Oriented GCS Score: 15 - Psych Psych: Normal mood, Normal affect Results - Vitals Vitals: Vital Signs - 24 hr 06/07/17 14:42 Temperature 36.3 C L Heart Rate 85 Respiratory 17 Rate Blood Pressure 134/78 H O2 Saturation 99 Oxygen O2 Source Room air - Labs Labs: Laboratory Tests 06/07/17 06/07/17 14:40 14:40 Urine Color YELLOW Urine Clarity CLEAR Urine pH 7.5 Ur Specific [place] 1.015 1.015 Urine Protein NEGATIVE Urine Glucose (UA) NEGATIVE Urine Ketones NEGATIVE Urine Occult Blood NEGATIVE Urine Nitrite NEGATIVE Urine Bilirubin NEGATIVE Urine Urobilinogen 0.2 (NORMAL) Ur Leukocyte Esterase NEGATIVE Ur Microscopic Review NOT INDICATED Urine Culture Comments NOT INDICATED Urine HCG, Qual NEGATIVE PD MEDICAL DECISION MAKING - ED course Complexity details: reviewed results, re-evaluated patient, considered differential, d/w patient ED course: 22-year-old female with urinary urgency andFrequency over the past week submit a clear urine specimen. She does not have glucose or blood in the urine and she is negative for nitrites or leukocytes. She has one concern that she may have exposure to chlamydia she has had this previously and was asymptomatic at the time. I have made a plan with the patient to test her urine here today for chlamydia if this is negative she will seek care with her primary care doctor for formal culturing prior to treating. Departure - Departure Disposition: 01 Home, Self Care Clinical Impression: Cystitis Condition: Stable Instructions: ED Urethritis Infec Vs Inflam Fem Follow-Up: Leslie Torres ARNP [Primary Care Provider] - Comments: Today we did not find any evidence of infection in the urine. We will test the urine for chlamydia but this is not the best test for chlamydia. If this is negative and you continue to have symptoms follow-up with your primary care doctor for formal culturing.
== END 2017-06-07 15:45 | disposition home or self-care (01) ==
LOC: ED 14:18
DX: N30.90 Cystitis, unspecified without hematuria (principal); Z20.2 Contact with and (suspected) exposure to infections with a predominantly sexual mode of transmission; I10 Essential (primary) hypertension
CPT/HCPCS: 81001; 81003; 81025; 87086; 87491; 87591; 99282; 99283

== ENCOUNTER 2017-08-02 08:45 | Outpatient (CLI) | payer MEDICAID ==
[2017-08-02 10:14] LABS: BASOPHILS # (AUTO) 0.1 10^3/uL (0.0-0.1); BASOPHILS % (AUTO) 0.6 %; EOSINOPHILS # (AUTO) 0.1 10^3/uL (0.0-0.7); EOSINOPHILS % (AUTO) 1.6 %; HGB - HEMOGLOBIN 14.7 g/dL (12.0-16.0); LYMPHOCYTES # (AUTO) 2.8 10^3/uL (1.5-3.5); LYMPHOCYTES % (AUTO) 30.8 %; MEAN CORPUSCULAR HEMOGLOBIN 30.2 pg (27.0-31.0); MEAN CORPUSCULAR HGB CONC 34.6 g/dL (32.0-36.0); MEAN CORPUSCULAR VOLUME 87.2 fL (81.0-99.0); MEAN PLATELET VOLUME 8.5 fL (7.9-10.8); MONOCYTES # (AUTO) 0.7 10^3/uL (0.0-1.0); MONOCYTES % (AUTO) 8.1 %; NEUTROPHILS # (AUTO) 5.3 10^3/uL (1.5-6.6); NEUTROPHILS % (AUTO) 58.9 %; PLT - PLATELET COUNT 252 10^3/uL (130-450); RED BLOOD COUNT 4.87 10^6/uL (4.20-5.40); RED CELL DISTRIBUTION WIDTH 13.7 % (12.0-15.0)
[2017-08-02 10:47] LABS: % IRON SATURATION 24 % (20-50); IRON 86 ug/dL (28-170); TOTAL IRON BINDING CAPACITY 363 ug/dL (250-450); TRANSFERRIN 259 mg/dL (192-382)
== END 2017-08-02 08:46 | disposition home or self-care (01) ==
LOC: LAB.F 08:45
PROVIDERS: ATTEND Nurse Practitioner Family
DX: D50.9 Iron deficiency anemia, unspecified (principal)
CPT/HCPCS: 36415; 82728; 83540; 84466; 85025

== ENCOUNTER 2017-09-04 09:19 | Outpatient (CLI) | payer MEDICAID ==
[2017-09-04 18:47] LABS: BASOPHILS # (AUTO) 0.1 10^3/uL (0.0-0.1); BASOPHILS % (AUTO) 0.9 %; EOSINOPHILS # (AUTO) 0.1 10^3/uL (0.0-0.7); EOSINOPHILS % (AUTO) 1.5 %; HGB - HEMOGLOBIN 13.9 g/dL (12.0-16.0); LYMPHOCYTES # (AUTO) 3.1 10^3/uL (1.5-3.5); LYMPHOCYTES % (AUTO) 32.9 %; MEAN CORPUSCULAR HEMOGLOBIN 30.2 pg (27.0-31.0); MEAN CORPUSCULAR HGB CONC 33.4 g/dL (32.0-36.0); MEAN CORPUSCULAR VOLUME 90.4 fL (81.0-99.0); MEAN PLATELET VOLUME 8.4 fL (7.9-10.8); MONOCYTES # (AUTO) 0.7 10^3/uL (0.0-1.0); MONOCYTES % (AUTO) 7.5 %; NEUTROPHILS # (AUTO) 5.4 10^3/uL (1.5-6.6); NEUTROPHILS % (AUTO) 57.2 %; PLT - PLATELET COUNT 245 10^3/uL (130-450); RED BLOOD COUNT 4.62 10^6/uL (4.20-5.40); RED CELL DISTRIBUTION WIDTH 12.8 % (12.0-15.0); WHITE BLOOD COUNT 9.4 x10^3/uL (4.8-10.8)
== END 2017-09-04 09:20 ==
LOC: LAB.S 09:19
PROVIDERS: ATTEND Nurse Practitioner Family
DX: R53.83 Other fatigue (principal)
CPT/HCPCS: 36415; 84443; 85025

== ENCOUNTER 2018-01-02 15:00 | Outpatient (CLI) | payer MEDICAID, OTHER ==
[2018-01-03 14:28] LABS: BILIRUBIN,URINE NEGATIVE (NEGATIVE); GLUCOSE, URINE (UA) NEGATIVE (NEGATIVE); KETONES,URINE (UA) NEGATIVE (NEGATIVE); LEUKOCYTE ESTERASE, URINE NEGATIVE (NEGATIVE); NITRITE,URINE NEGATIVE (NEGATIVE); OCCULT BLOOD,URINE TRACE-LYSE (NEGATIVE); PROTEIN,URINE NEGATIVE (NEGATIVE); UROBILINOGEN,URINE 0.2 (NORMAL) E.U./dL (NORMAL)
[2018-01-03 14:30] LABS: CLARITY,URINE CLEAR (CLEAR)
[2018-01-03 14:41] LABS: BACTERIA,URINE Few /HPF (None Seen); RBC,URINE 0-5 /HPF (0-5); SQUAMOUS EPITHELIAL CELL,UR FEW Squamous (<= Few)
== END 2018-01-02 15:01 | disposition home or self-care (01) ==
LOC: LAB.R 15:00
PROVIDERS: ATTEND Nurse Practitioner Family
DX: N39.0 Urinary tract infection, site not specified (principal)
CPT/HCPCS: 81001; 87086

== ENCOUNTER 2018-02-26 15:05 | Emergency (ER) | payer MEDICAID ==
[2018-02-26 15:17] VITALS: BP 137/91
--- NOTE | 2018-02-26 16:49 | ED Physician Documentation ---
PD HPI SKIN - Stated complaint Stated Complaint: FEMALE - Chief complaint Chief Complaint: Wound - History obtained from History obtained from: Patient - History of Present Illness Timing - onset: Other (23-year-old woman with hidradenitis supperativa with a 10-day history of a draining cyst to the left groin and 3 days of fatigue and chills without measured fevers. 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, Miscarriage(s) : None HEENT: None Psych: Depression, Anxiety, Bipolar disorder Musculoskeletal: Fibromyalgia, Other Derm: None - Past Surgical History Past Surgical History: Yes Ortho: Other - Present Medications Home Medications: Ambulatory Orders Medication Instructions Recorded Confirmed RX: metFORMIN [Glucophage] 500 mg PO BID 05/25/15 06/07/17 RX: Omeprazole [PriLOSEC] 20 mg ORAL DAILY 12/13/15 06/07/17 RX: Propranolol [Inderal] 20 mg PO DAILY 10/31/16 06/07/17 RX: Ferrous Sulfate 325 mg PO DAILY #30 tablet 11/01/16 06/07/17 Citalopram [CeleXA] 40 mg PO DAILY 01/16/17 06/07/17 Lamotrigine [Lamotrigine ER] 200 mg PO DAILY 01/16/17 06/07/17 Ondansetron Odt [Zofran] 4 mg TL Q6H PRN #10 tablet 01/16/17 06/07/17 RX: Guanfacine HCl 1 mg PO DAILY 06/07/17 06/07/17 RX: Doxycycline Hyclate 100 mg PO BID #20 capsule 02/26/18 RX: Mupirocin 1 gm TP BID #30 gr 02/26/18 - Allergies Allergies/Adverse Reactions: Allergies Allergy/AdvReac Type Severity Reaction Status Date / Time No Known Drug Allergies Allergy Verified 02/26/18 15:17 - Social History Does the pt smoke?: No Smoking Status: Never smoker Does the pt drink ETOH?: No Does the pt have substance abuse?: No - Immunizations Immunizations are current?: Yes - POLST Patient has POLST: No PD ED PE NORMAL - Vitals Vital signs reviewed: Yes - General General: Alert and oriented X 3, No acute distress - HEENT HEENT: Atraumatic, Pharynx benign - Neck Neck: No adenopathy - Cardiac Cardiac: RRR, No murmur - Respiratory Respiratory: No respiratory distress, Clear bilaterally - Abdomen Abdomen: Soft, Non tender - Derm Derm: Other (There is a shallow ulcer/completely drained cyst in the left inguinal area with very mild surrounding cellulitis. Nothing to culture.) - Neuro Neuro: Alert and oriented X 3, Normal speech Results - Vitals Vitals: Vital Signs - 24 hr 02/26/18 15:13 Temperature 36.1 C L Heart Rate 86 Respiratory 18 Rate Blood Pressure 137/91 H O2 Saturation 99 Oxygen O2 Source Room air PD MEDICAL DECISION MAKING - Sepsis Event Vital Signs: Vital Signs - 24 hr 02/26/18 15:13 Temperature 36.1 C L Heart Rate 86 Respiratory 18 Rate Blood Pressure 137/91 H O2 Saturation 99 Oxygen O2 Source Room air Departure - Departure Disposition: 01 Home, Self Care Clinical Impression: Hidradenitis suppurativa Condition: Good Record reviewed to determine appropriate education?: Yes Instructions: ED Staph Infec Abx Tx Only Prescriptions: RX: Doxycycline Hyclate 100 mg PO BID #20 capsule RX: Mupirocin 1 gm TP BID #30 gr Comments: Do not take the doxycycline within an hour of your iron supplements. Your blood pressure was elevated today on check into the emergency department. This does not mean that you have hypertension, it is a common phenomenon to come to the emergency department and have elevated blood pressure. I recommend that you see your primary care physician within the week to have it rechecked when you are feeling better. Call your doctor to arrange a follow-up appointment, make the next available appointment. In the interim, return anytime if worse or if new symptoms develop. Discharge Date/Time: 02/26/18 16:56
== END 2018-02-26 16:56 | disposition home or self-care (01) ==
LOC: ED 15:05
DX: L73.2 Hidradenitis suppurativa (principal); I10 Essential (primary) hypertension
CPT/HCPCS: 99283

== ENCOUNTER 2018-04-16 08:47 | Emergency (ER) | payer MEDICAID ==
--- NOTE | 2018-04-16 09:05 | ED Physician Documentation ---
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, Miscarriage(s) : None HEENT: None Psych: Depression, Anxiety, Bipolar disorder Musculoskeletal: Fibromyalgia, Other Derm: None - Past Surgical History Past Surgical History: Yes Ortho: Other - Present Medications Home Medications: Ambulatory Orders Medication Instructions Recorded Confirmed metFORMIN [Glucophage] 500 mg PO BID 05/25/15 06/07/17 Omeprazole [PriLOSEC] 20 mg ORAL DAILY 12/13/15 06/07/17 Propranolol [Inderal] 20 mg PO DAILY 10/31/16 06/07/17 Ferrous Sulfate 325 mg PO DAILY #30 tablet 11/01/16 06/07/17 Citalopram [CeleXA] 40 mg PO DAILY 01/16/17 06/07/17 Lamotrigine [Lamotrigine ER] 200 mg PO DAILY 01/16/17 06/07/17 Ondansetron Odt [Zofran] 4 mg TL Q6H PRN #10 tablet 01/16/17 06/07/17 Guanfacine HCl 1 mg PO DAILY 06/07/17 06/07/17 Doxycycline Hyclate 100 mg PO BID #20 capsule 02/26/18 Mupirocin 1 gm TP BID #30 gr 02/26/18 - Allergies Allergies/Adverse Reactions: Allergies Allergy/AdvReac Type Severity Reaction Status Date / Time No Known Drug Allergies Allergy Verified 02/26/18 15:17 - Social History Does the pt smoke?: No Smoking Status: Never smoker Does the pt drink ETOH?: No Does the pt have substance abuse?: No - Immunizations Immunizations are current?: Yes - POLST Patient has POLST: No PD ED PE NORMAL - Vitals Vital signs reviewed: Yes - Extremities Extremities: Other (pt ambulated to her room with a limp, knee and prox leg NT, swelling and TTP approx 3 inches above lateral mall, TTP post inf to lateral mall, TTP along achilles but no fefect palp and nl eason test, no foot pain, MSV intact) Results - Vitals Vitals: Vital Signs - 24 hr 04/16/18 08:54 Temperature 37.1 C Heart Rate 96 Respiratory 18 Rate Blood Pressure 139/84 H O2 Saturation 97 Oxygen O2 Source Room air - Rads (name of study) ankle Radiology: See rad report (no fx or dislocation) Departure - Departure Disposition: 01 Home, Self Care Clinical Impression: Ankle sprain Qualifiers: Encounter type: initial encounter Involved ligament of ankle: unspecified ligament Laterality: right Qualified Code(s): S93.401A - Sprain of unspecified ligament of right ankle, initial encounter Condition: Good Instructions: ED Sprain Ankle W X Ray Comments: Thankfully the xray does not show any fractures Recommend you use the crutches to minimize weight bearing stress and allow the ankle to heal. RADHA elevation and ice wrapped in a towel for 20 minutes at a time for swelling Tylenol and motrin as needed for the pain. If the pain persists for more than 2 weeks, please follow up with your PMD for a recheck and consideration of further imaging
--- NOTE | 2018-04-16 09:29 | XRAY Report ---
Reason: lateral posterior pain Procedure Date: 04/16/2018 Accession Number: [id number] / [id number] Procedure: XR - Ankle 3 View RT CPT Code: FULL RESULT: EXAM: RIGHT ANKLE RADIOGRAPHY EXAM DATE: 04/16/2018 09:13 AM. CLINICAL HISTORY: Lateral posterior pain. Inversion injury. History of prior fracture. COMPARISON: 11/29/2010. 06/11/2016. TECHNIQUE: 3 views. FINDINGS: Bones: No acute fracture or bony lesion. Healed distal right fibular fracture seen. Lucencies in the distal right fibula may be due to prior internal fixation. Joints: Ankle mortise is well maintained. No dislocation. Joint space narrowing. No ankle effusion. Soft Tissues: Soft tissue edema. IMPRESSION: 1. No acute osseous abnormalities. RADIA
[2018-04-16 10:54] VITALS: BP 135/84
== END 2018-04-16 10:50 | disposition home or self-care (01) ==
LOC: ED 08:47
DX: S93.401A Sprain of unspecified ligament of right ankle, initial encounter (principal); W01.0XXA Fall on same level from slipping, tripping and stumbling without subsequent striking against object, initial encounter; Y93.E1 Activity, personal bathing and showering; Y92.002 Bathroom of unspecified non-institutional (private) residence as the place of occurrence of the external cause; I10 Essential (primary) hypertension
CPT/HCPCS: 99282; 99283

== ENCOUNTER 2018-06-28 09:00 | Emergency (ER) | payer MEDICAID ==
[2018-06-28 09:20] VITALS: BP 145/86
== END 2018-06-28 12:00 | disposition left against medical advice (07) ==
LOC: ED 09:00
DX: M79.10 Myalgia, unspecified site (principal); R51 Headache; Z53.21 Procedure and treatment not carried out due to patient leaving prior to being seen by health care provider

== ENCOUNTER 2018-07-18 09:31 | Outpatient (CLI) | payer MEDICAID ==
[2018-07-18 19:07] LABS: HB2 TOTAL 15.6 g/dL; HEMOGLOBIN A1C 0.5 g/dL; HEMOGLOBIN A1C % 5.1 % (4.6-6.2)
== END 2018-07-18 09:32 | disposition home or self-care (01) ==
LOC: LAB.F 09:31
PROVIDERS: ATTEND Nurse Practitioner Family
DX: E28.2 Polycystic ovarian syndrome (principal); N76.0 Acute vaginitis
CPT/HCPCS: 36415; 82947; 83036

== ENCOUNTER 2018-09-17 16:41 | Emergency (ER) | payer MEDICAID ==
[2018-09-17 18:49] LABS: BASOPHILS # (AUTO) 0.1 10^3/uL (0.0-0.1); BASOPHILS % (AUTO) 0.8 %; EOSINOPHILS # (AUTO) 0.1 10^3/uL (0.0-0.7); EOSINOPHILS % (AUTO) 0.9 %; HGB - HEMOGLOBIN 14.6 g/dL (12.0-16.0); LYMPHOCYTES # (AUTO) 2.4 10^3/uL (1.5-3.5); MEAN CORPUSCULAR HEMOGLOBIN 29.4 pg (27.0-31.0); MEAN CORPUSCULAR HGB CONC 33.4 g/dL (32.0-36.0); MEAN CORPUSCULAR VOLUME 88.2 fL (81.0-99.0); MEAN PLATELET VOLUME 7.9 fL (7.9-10.8); MONOCYTES # (AUTO) 0.6 10^3/uL (0.0-1.0); MONOCYTES % (AUTO) 6.2 %; NEUTROPHILS # (AUTO) 6.1 10^3/uL (1.5-6.6); NEUTROPHILS % (AUTO) 66.1 %; PLT - PLATELET COUNT 261 10^3/uL (130-450); RED BLOOD COUNT 4.95 10^6/uL (4.20-5.40); RED CELL DISTRIBUTION WIDTH 12.5 % (12.0-15.0); WHITE BLOOD COUNT 9.3 x10^3/uL (4.8-10.8)
--- NOTE | 2018-09-17 18:53 | ED Physician Documentation ---
PD HPI NVD - Stated complaint Stated Complaint: N/V/D/SHAKY - Chief complaint Chief Complaint: Abd Pain - History obtained from History obtained from: Patient - History of Present Illness Timing - onset: How many days ago (05/23) Timing - details: Abrupt onset (The patient started with nausea and vomiting 2 and half days ago and that has persisted. She developed some diarrhea part of the day after the onset of vomiting. The diarrhea has tapered down after a day and has had minimal diarrhea since earlier today. She is still continue with nausea limiting her oral intake. She feels weak and lightheaded. She has had intermittent abdominal pains but no consistent pain or tenderness.) Associated symptoms: Abdominal pain (cramping), Loss of appetite. No: Fever, Near syncope / syncope (but is feeling lightheaded) Contributing factors: No: Sick contact, Bad food, Travel, Recent antibiotics Improved by: No: Vomiting Worsened by: Eating Similar symptoms before: Has not had sx before Recently seen: Not recently seen Review of Systems Constitutional: reports: Myalgias, Fatigue. denies: Fever, Chills Nose: denies: Rhinorrhea / runny nose, Congestion Throat: denies: Sore throat Respiratory: denies: Cough GI: reports: Abdominal Pain (cramping), Nausea, Vomiting, Diarrhea : denies: Dysuria, Frequency Skin: denies: Rash, Lesions Neurologic: reports: Generalized weakness, Headache. 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, Miscarriage(s) : None HEENT: None Psych: Depression, Anxiety, Bipolar disorder Musculoskeletal: Fibromyalgia, Other Derm: None - Past Surgical History Past Surgical History: Yes Ortho: Other - Present Medications Home Medications: Ambulatory Orders Medication Instructions Recorded Confirmed metFORMIN [Glucophage] 500 mg PO BID 05/25/15 06/07/17 Omeprazole [PriLOSEC] 20 mg ORAL DAILY 12/13/15 06/07/17 Propranolol [Inderal] 20 mg PO DAILY 10/31/16 06/07/17 Ferrous Sulfate 325 mg PO DAILY #30 tablet 11/01/16 06/07/17 Citalopram [CeleXA] 40 mg PO DAILY 01/16/17 06/07/17 Lamotrigine [Lamotrigine ER] 200 mg PO DAILY 01/16/17 06/07/17 Ondansetron Odt [Zofran] 4 mg TL Q6H PRN #10 tablet 01/16/17 06/07/17 Guanfacine HCl 1 mg PO DAILY 06/07/17 06/07/17 Doxycycline Hyclate 100 mg PO BID #20 capsule 02/26/18 Mupirocin 1 gm TP BID #30 gr 02/26/18 Famotidine 20 mg PO DAILY #15 tablet 09/17/18 Ondansetron Odt [Zofran] 4 mg TL Q6H PRN #10 tablet 09/17/18 - Allergies Allergies/Adverse Reactions: Allergies Allergy/AdvReac Type Severity Reaction Status Date / Time No Known Drug Allergies Allergy Verified 06/28/18 09:19 - Social History Does the pt smoke?: No Smoking Status: Never smoker Does the pt drink ETOH?: No Does the pt have substance abuse?: No - Immunizations Immunizations are current?: Yes - POLST Patient has POLST: No PD ED PE NORMAL - Vitals Vital signs reviewed: Yes - General General: Alert and oriented X 3, No acute distress, Well developed/nourished - HEENT HEENT: Ears normal, Pharynx benign. No: Moist mucous membranes - Neck Neck: Supple, no meningeal sign, No adenopathy - Cardiac Cardiac: RRR, No murmur - Respiratory Respiratory: Clear bilaterally - Abdomen Abdomen: Soft, Non tender (no focal tenderness on exam. No perucssion tenderness. ), Non distended, No organomegaly. No: Normal bowel sounds (increased) - Female Female : Deferred - Rectal Rectal: Deferred - Back Back: No CVA TTP - Derm Derm: Normal color Results - Vitals Vitals: Vital Signs - 24 hr 09/17/18 09/17/18 09/17/18 16:59 19:52 21:26 Temperature 36.7 C Heart Rate 97 84 79 Respiratory 16 20 16 Rate Blood Pressure 147/97 H 159/100 H 124/87 H O2 Saturation 99 99 100 09/17/18 22:24 Temperature 36.2 C L Heart Rate Respiratory Rate Blood Pressure O2 Saturation Oxygen O2 Source Room air - Labs Labs: Laboratory Tests 09/17/18 09/17/1809/17/19 18:40 18:40 18:40 WBC 9.3 RBC 4.95 Hgb 14.6 Hct 43.7 MCV 88.2 MCH 29.4 MCHC 33.4 RDW 12.5 Plt Count 261 MPV 7.9 Neut # (Auto) 6.1 Lymph # (Auto) 2.4 [place] # (Auto) 0.6 Eos # (Auto) 0.1 Baso # (Auto) 0.1 Absolute Nucleated RBC 0.01 Nucleated RBC % 0.1 Sodium 138 Potassium 3.7 Chloride 98 L Carbon Dioxide 29 Anion Gap 11.0 BUN 8 Creatinine 0.7 Estimated GFR (MDRD) 102 Glucose 111 H Calcium 9.5 Total Bilirubin 0.4 AST 25 ALT 33 Alkaline Phosphatase 84 Total Protein 7.5 Albumin 4.3 Globulin 3.2 Albumin/Globulin Ratio 1.3 Lipase 29 Urine Color YELLOW Urine Clarity CLEAR Urine pH 7.0 Ur Specific [place] 1.020 Urine Protein NEGATIVE Urine Glucose (UA) NEGATIVE Urine Ketones NEGATIVE Urine Occult Blood NEGATIVE Urine Nitrite NEGATIVE Urine Bilirubin NEGATIVE Urine Urobilinogen 0.2 (NORMAL) Ur Leukocyte Esterase NEGATIVE Ur Microscopic Review NOT INDICATED Urine Culture Comments NOT INDICATED Urine HCG, Qual 09/17/18 18:40 WBC RBC Hgb Hct MCV MCH MCHC RDW Plt Count MPV Neut # (Auto) Lymph # (Auto) [place] # (Auto) Eos # (Auto) Baso # (Auto) Absolute Nucleated RBC Nucleated RBC % Sodium Potassium Chloride Carbon Dioxide Anion Gap BUN Creatinine Estimated GFR (MDRD) Glucose Calcium Total Bilirubin AST ALT Alkaline Phosphatase Total Protein Albumin Globulin Albumin/Globulin Ratio Lipase Urine Color Urine Clarity Urine pH Ur Specific [place] 1.020 Urine Protein Urine Glucose (UA) Urine Ketones Urine Occult Blood Urine Nitrite Urine Bilirubin Urine Urobilinogen Ur Leukocyte Esterase Ur Microscopic Review Urine Culture Comments Urine HCG, Qual NEGATIVE PD MEDICAL DECISION MAKING - ED course Complexity details: re-evaluated patient (feeling better after couple antiemetics and fluids, then cramps better with meds, toradol moreso. ), considered differential (low suspicion for focal organ process, such as gallbladder nor appendicitis. Sounds GE and will treat with fluids and meds. ), d/w patient Departure - Departure Disposition: 01 Home, Self Care Clinical Impression: Nausea vomiting and diarrhea, Dehydration Condition: Stable Record reviewed to determine appropriate education?: Yes Instructions: ED Diet Vomiting Diarrhea Follow-Up: Fly,Leslie M, SWIMMING INSTRUCTOR [Primary Care Provider] - Prescriptions: Famotidine 20 mg PO DAILY #15 tablet Ondansetron Odt [Zofran] 4 mg TL Q6H PRN #10 tablet PRN Reason: Nausea / Vomiting Comments: Small frequent fluids. Ondansetron every 6 hours if needed for nausea. Your stomach would be pretty irritated after the couple of days of vomiting, so you some acid reducing medicine such as famotidine daily for a week or 2. Slowly progress diet as able over the next day. Recheck if not improved over the next day to 2 at most. Discharge Date/Time: 09/17/18 22:38
[2018-09-17 19:09] LABS: ALBUMIN 4.3 g/dL (3.2-5.5); ALBUMIN/GLOBULIN RATIO 1.3 (1.0-2.2); BILIRUBIN,TOTAL 0.4 mg/dL (0.2-1.0); CALCIUM 9.5 mg/dL (8.5-10.3); CREATININE 0.7 mg/dL (0.4-1.0); TOTAL PROTEIN 7.5 g/dL (6.7-8.2)
[2018-09-17] MEDS ORDERED: SODIUM CHLORIDE 0.9% 1,000 ML IV ONE ×2 (19:19→19:20)
[2018-09-17] MEDS ORDERED: ONDANSETRON 4 MG/2 ML VIAL IVP STA (19:19)
[2018-09-17] MEDS ORDERED: FAMOTIDINE 20 MG/2 ML VIAL IVP STA (19:20)
[2018-09-17] MEDS ORDERED: MORPHINE 10 MG/ML VIAL IVP STA (19:20)
[2018-09-17 19:46] LABS: BILIRUBIN,URINE NEGATIVE (NEGATIVE); GLUCOSE, URINE (UA) NEGATIVE (NEGATIVE); KETONES,URINE (UA) NEGATIVE (NEGATIVE); LEUKOCYTE ESTERASE, URINE NEGATIVE (NEGATIVE); NITRITE,URINE NEGATIVE (NEGATIVE); OCCULT BLOOD,URINE NEGATIVE (NEGATIVE); PROTEIN,URINE NEGATIVE (NEGATIVE); UROBILINOGEN,URINE 0.2 (NORMAL) E.U./dL (NORMAL)
[2018-09-17 19:49] LABS: CLARITY,URINE CLEAR (CLEAR); HCG UR QUAL NEGATIVE
[2018-09-17] MEDS ORDERED: PROCHLORPERAZINE 10 MG/2 ML VIAL IVP STA (21:13)
[2018-09-17] MEDS ORDERED: KETOROLAC 30 MG/ML VIAL IVP STA (21:26)
[2018-09-17 21:27] VITALS: BP 124/87
[2018-09-17] MEDS ORDERED: ONDANSETRON ODT 4 MG Prepack 2 TL PRN (22:23)
== END 2018-09-17 22:38 | disposition home or self-care (01) ==
LOC: ED 16:41
DX: R11.2 Nausea with vomiting, unspecified (principal); R19.7 Diarrhea, unspecified; E86.0 Dehydration; I10 Essential (primary) hypertension
CPT/HCPCS: 36415; 80053; 81001; 81003; 81025; 83690; 85025; 87086; 96361; 96374; 96375; 99283; 99284

== ENCOUNTER 2018-12-18 14:07 | Outpatient (CLI) | payer MEDICAID | END 2018-12-18 14:08 | disposition home or self-care (01) | LOC: NS 14:07 | PROVIDERS: ATTEND Family Medicine | DX: E66.01 Morbid (severe) obesity due to excess calories (principal); Z71.3 Dietary counseling and surveillance; Z68.43 Body mass index [BMI] 50.0-59.9, adult | CPT/HCPCS: 97802 ==

== ENCOUNTER 2019-01-08 10:13 | Outpatient (CLI) | payer MEDICAID | END 2019-01-08 10:14 | disposition home or self-care (01) | LOC: NS 10:13 | PROVIDERS: ATTEND Family Medicine | DX: E66.01 Morbid (severe) obesity due to excess calories (principal); Z71.3 Dietary counseling and surveillance; Z68.43 Body mass index [BMI] 50.0-59.9, adult | CPT/HCPCS: 97803 ==

== ENCOUNTER 2019-01-08 13:00 | Outpatient (CLI) | payer MEDICAID ==
[2019-01-08 17:28] VITALS: BP 100/60
--- NOTE | 2019-01-08 17:29 | SLEEP CARE CONSULTATION ---
Information from patient questionnaire entered by Junie Muñiz. I have reviewed and concur with the information entered by Junie Muñiz. This document represents the service I personally performed and the decisions made by me, Chalo Lopez MD, [facility]. History of Present Illness Reason for Visit: New patient Chief Complaint: reports: Unrefreshed sleep, Snoring, Excessive daytime sleepiness, Fatigue Duration of Symptoms: 10 years Usual bedtime: 10:00 pm or 2:00 am Time it takes to fall asleep: about 60 mins Snores at night: Yes Observed to quit breathing while asleep: Yes Sleeps alone due to snoring: Yes Number of times waking at night: 3-4 Reasons for waking at night: reports: Snoring, Gasping for air, Bathroom, Other (acid) Toss, Turn, or Twitch while sleeping: Yes Recalls having dreams: Yes Usually gets out of bed at: between 9:00-10:00 am Morning headache: Yes (sometimes) Sleepy or fatigued during the day: Yes Ever fallen asleep while driving: Yes Takes day naps: Yes Dreams during day naps: No Prior sleep studies: Yes Year and Where: 2005, here Additional HPI information: I had the pleasure of seeing Ms. Hoffman today regarding the possibility of her having a sleep disorder. As you know, she is a 24 year old lady who complains of loud snore, unrefreshed sleep persistent fatigue, and excessive daytime sleepiness for the past 10 years. She had a sleep study here 13 years ago when she was 10 years old. The study was negative and the diagnosis was delayed sleep phase syndrome causing insufficient sleep and excessive daytime sleepiness. 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 Patient is and lives in [place]. Have you smoked in the past 12 months: Yes Cigarettes per day (20/pack): 20 Years of smokin Quit date: 2017 Smoking Pack Years: 8.0 Alcohol use: Yes Alcohol amount and frequency: 5 drinks 3-4 times a month Caffeine use: Yes Caffeine amount and frequency: 10 oz every morning Family History Family history of sleep disordered breathing: Yes Allergies and Home Medications Home medication list reviewed: Yes Review of Systems Weight gain over past 5 years: 120 Cardiovascular: reports: high blood pressure, leg or foot swelling Respiratory: reports: shortness of breath, wheeze Gastrointestinal: reports: heartburn, nausea, diarrhea, abdominal pain Neurological: reports: headaches, head trauma Psychiatric: reports: Attention Deficit Hyperactivity, anxiety, depression, mood disorder, other (Bipolar, PTSD) Ear/Nose/Throat: reports: nasal congestion, sinus problems, dry mouth/throat Endocrine: reports: sluggishness, too hot or cold, unexplained weakness Musculoskeletal: reports: joint pain, neck pain, back pain, joint swelling, muscle pain or cramping, mobility problems Immunologic: reports: itching Physical Exam Vital signs obtained and entered by: Dr. Lopez Blood Pressure: 100/60 Heart Rate: 72 O2 Saturation: 97 Height: 5 ft 5 in Weight (kg): 350 lb Body Mass Index: 58.2 BMI Classification: Class 3 Neck circumference: 17.5 Mood/affect: normal HEENT: No craniofacial malformation Nostrils: patent to airflow Turbinates: normal Septum: midline Mouth and throat: narrow oropharynx Soft palate: long Hard palate: normal Uvula: normal Uvula visualization: 50% Mallampati Class II Tongue: normal in size Tonsils: small Chin and jaw: normal size and position Neck: normal w/o lymphadenopathy or thyromegaly Heart: regular rate and rhythm Lungs: clear bilaterally Abdomen: soft Extremities: no edema or clubbing Neurologic: intact Impression and Plan IMPRESSION: 1. Obstructive Sleep Apnea-Hypopnea Syndrome, as suggested by history of loud and irregular snoring, observed cessation of breath while asleep, frequent awakenings during the night, unrefreshed sleep, cognitive impairment, and daytime hypersomnolence. Narrow oropharynx and obesity are common predisposing factors for obstructive sleep apnea-hypopnea syndrome. Pathophysiology of sleep-disordered breathing was discussed. I recommend proceeding to polysomnography to confirm the diagnosis and to assess severity. If she has significant sleep disordered breathing, a manual CPAP titration study will also be performed to find the optimal treatment pressure. I informed the patient of what the sleep studies involve and after some discussion, she agreed to proceed. Plan: 1. Schedule polysomnography + manual CPAP titration study and return in 1 to 2 weeks after the study to discuss result and initiate therapy. 2. Avoid long distance driving or when feeling sleepy. 3. Avoid alcohol, sedative and muscle relaxant around bedtime. 4. Attempt to lose weight. I spent 100% of this 15 minute visit face to face with the patient with greater than 50% of this was spent time counseling the patient and coordination of care.
== END 2019-01-08 13:01 | disposition home or self-care (01) ==
LOC: SC 13:00
PROVIDERS: ATTEND Internal Medicine Pulmonary Disease
DX: G47.10 Hypersomnia, unspecified (principal); R06.81 Apnea, not elsewhere classified; R06.83 Snoring; G47.8 Other sleep disorders; R41.89 Other symptoms and signs involving cognitive functions and awareness
CPT/HCPCS: 99203; 99212

== ENCOUNTER 2019-01-08 22:34 | Emergency (ER) | payer MEDICAID ==
[2019-01-08 22:43] VITALS: BP 134/82
--- NOTE | 2019-01-08 22:46 | ED Physician Documentation ---
History of Present Illness - Stated complaint Stated Complaint: TOOTH PAIN - Chief complaint Chief Complaint: Heent - Additonal information Additional information: This is a 23-year-old female who presents with dental pain. Patient has had a wisdom tooth coming in on her left upper mouth which is been causing her some discomfort, she has an appointment with a oral surgeon to get these removed next Monday. Over the past 48 hours she has had increasing pain in the tooth, the pain is worse when she palpates the tooth, when she chews, she also has some cold sensitivity. She has not been on any antibiotics. No fever or facial swelling. 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, Miscarriage(s) : None HEENT: None Psych: Depression, Anxiety, Bipolar disorder Musculoskeletal: Fibromyalgia, Other Derm: None - Past Surgical History Past Surgical History: Yes Ortho: Other - Present Medications Home Medications: Ambulatory Orders Medication Instructions Recorded Confirmed metFORMIN [Glucophage] 500 mg PO BID 05/25/15 06/07/17 Omeprazole [PriLOSEC] 20 mg ORAL DAILY 12/13/15 06/07/17 Propranolol [Inderal] 20 mg PO DAILY 10/31/16 06/07/17 Ferrous Sulfate 325 mg PO DAILY #30 tablet 11/01/16 06/07/17 Citalopram [CeleXA] 40 mg PO DAILY 01/16/17 06/07/17 Lamotrigine [Lamotrigine ER] 200 mg PO DAILY 01/16/17 06/07/17 Ondansetron Odt [Zofran] 4 mg TL Q6H PRN #10 tablet 01/16/17 06/07/17 Guanfacine HCl 1 mg PO DAILY 06/07/17 06/07/17 Doxycycline Hyclate 100 mg PO BID #20 capsule 02/26/18 Mupirocin 1 gm TP BID #30 gr 02/26/18 Famotidine 20 mg PO DAILY #15 tablet 09/17/18 Ondansetron Odt [Zofran] 4 mg TL Q6H PRN #10 tablet 09/17/18 Amox/Clav 875/125 [Augmentin] 1 each PO Q12H #20 tablet 01/08/19 Oxycodone HCl/Acetaminophen 1 each PO Q6H PRN #7 tablet 01/08/19 [Percocet 5-325 mg Tablet] - Allergies Allergies/Adverse Reactions: Allergies Allergy/AdvReac Type Severity Reaction Status Date / Time No Known Drug Allergies Allergy Verified 01/08/19 22:43 - Social History Does the pt smoke?: No Smoking Status: Never smoker Does the pt drink ETOH?: No Does the pt have substance abuse?: No - Immunizations Immunizations are current?: Yes - POLST Patient has POLST: No PD ED PE NORMAL - Vitals Vital signs reviewed: Yes - General General: Alert and oriented X 3, No acute distress - HEENT HEENT: PERRL, Other (Rear upper left molar/wisdom tooth has an obvious sonya. No gingival abscess. no facial swelling, no trismus. Uvula midline.) - Neck Neck: Supple, no meningeal sign - Cardiac Cardiac: RRR - Derm Derm: Warm and dry - Extremities Extremities: No deformity - Neuro Neuro: Alert and oriented X 3 - Psych Psych: Normal mood, Normal affect Results - Vitals Vitals: Vital Signs - 24 hr 01/08/19 22:41 Temperature 37.6 C H Heart Rate 88 Respiratory 17 Rate Blood Pressure 134/82 H O2 Saturation 98 Oxygen O2 Source Room air PD MEDICAL DECISION MAKING - ED course Complexity details: considered differential (Pulpitis, dental abscess, dental pain) ED course: Patient is evaluated today for dental pain, she is well-appearing, she has an obvious sonya on her upper left molar, and by physical exam she has pulpitis. No signs of more serious infection at this time. We gave her 1 dose of oxycodone here, and started her on Augmentin. I will prescribe her a course of antibiotics, a small amount of oxycodone for breakthrough pain, and she has follow-up with her dentist/oral surgeon next Monday at her dental work done. Return precautions reviewed and patient was discharged Departure - Departure Disposition: Home, Self Care Clinical Impression: Tooth pulpitis Condition: Good Instructions: ED Tooth Pain Follow-Up: Your,Oral Surgeon [Other] (As scheduled) Prescriptions: Amox/Clav 875/125 [Augmentin] 1 each PO Q12H #20 tablet Oxycodone HCl/Acetaminophen [Percocet 5-325 mg Tablet] 1 each PO Q6H PRN #7 tablet PRN Reason: pain Comments: You were seen today for dental pain. Please take the antibiotic as prescribed. Follow up with your oral surgeon as scheduled. Return to the ED with worsening signs of infection or other concerning symptoms. Do not drink alcohol or drive while taking narcotic pain medication. Note that many narcotic pain relievers also contain Tylenol/acetaminophen. Please ensure that your total dose of acetaminophen from all sources does not exceed 3 g (3000 mg) per day. You may get constipated while on this medication. Take a stool softener such as Colace twice a day while you are on it. Also add an ronu-duu-yrrbzow laxative such as senna or MiraLAX on any day that you do not have a bowel movement. If you received a narcotic pain medication or sedative while in the emergency department, do not drive for the next 24 hours.
[2019-01-08] MEDS ORDERED: oxyCODONE 5 MG TABLET PO STA (22:56)
[2019-01-08] MEDS ORDERED: AMOX/CLAV 875 MG/125 MG TABLET PO STA (22:57)
== END 2019-01-08 23:34 | disposition home or self-care (01) ==
LOC: ED 22:34
DX: K04.01 Reversible pulpitis (principal); K02.9 Dental caries, unspecified; I10 Essential (primary) hypertension; E66.01 Morbid (severe) obesity due to excess calories; Z71.3 Dietary counseling and surveillance; Z68.43 Body mass index [BMI] 50.0-59.9, adult
CPT/HCPCS: 97803; 99282; 99284; A9270

== ENCOUNTER 2019-02-12 13:23 | Emergency (ER) | payer MEDICAID ==
--- NOTE | 2019-02-12 13:50 | ED Physician Documentation ---
PD HPI NVD - Stated complaint Stated Complaint: N/V/D HEADACHE - Chief complaint Chief Complaint: Abd Pain - History obtained from History obtained from: Patient - History of Present Illness Timing - onset: How many days ago (2-3) Timing - duration: Days (2-3) Timing - details: Abrupt onset, Still present Associated symptoms: Abdominal pain (crampy intermittent lower abd; nonfocal.). No: Fever Contributing factors: No: Sick contact, Bad food, Travel, Recent antibiotics Improved by: No: Eating, Vomiting Worsened by: Eating. No: Palpation Similar symptoms before: No diagnosis (similar about a year ago; no ongoing GI problems.) Recently seen: Not recently seen Review of Systems Constitutional: reports: Myalgias, Fatigue. denies: Fever, Chills Nose: denies: Rhinorrhea / runny nose, Congestion Throat: denies: Sore throat Respiratory: denies: Cough GI: reports: Nausea, Vomiting, Diarrhea (orange loose stools without blood) : reports: Missed period (last one in October). denies: Dysuria, Frequency Neurologic: reports: Generalized weakness, Headache (mild today). 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, Miscarriage(s) : None HEENT: None Psych: Depression, Anxiety, Bipolar disorder Musculoskeletal: Fibromyalgia, Other Derm: None - Past Surgical History Past Surgical History: Yes Ortho: Other - Present Medications Home Medications: Ambulatory Orders Medication Instructions Recorded Confirmed metFORMIN [Glucophage] 500 mg PO BID 05/25/15 06/07/17 Omeprazole [PriLOSEC] 20 mg ORAL DAILY 12/13/15 06/07/17 Propranolol [Inderal] 20 mg PO DAILY 10/31/16 06/07/17 Ferrous Sulfate 325 mg PO DAILY #30 tablet 11/01/16 06/07/17 Citalopram [CeleXA] 40 mg PO DAILY 01/16/17 06/07/17 Lamotrigine [Lamotrigine ER] 200 mg PO DAILY 01/16/17 06/07/17 Ondansetron Odt [Zofran] 4 mg TL Q6H PRN #10 tablet 01/16/17 06/07/17 Guanfacine HCl 1 mg PO DAILY 06/07/17 06/07/17 Doxycycline Hyclate 100 mg PO BID #20 capsule 02/26/18 Mupirocin 1 gm TP BID #30 gr 02/26/18 Famotidine 20 mg PO DAILY #15 tablet 09/17/18 Ondansetron Odt [Zofran] 4 mg TL Q6H PRN #10 tablet 09/17/18 Amox/Clav 875/125 [Augmentin] 1 each PO Q12H #20 tablet 01/08/19 Oxycodone HCl/Acetaminophen 1 each PO Q6H PRN #7 tablet 01/08/19 [Percocet 5-325 mg Tablet] Loperamide [Imodium] 2 mg PO Q6H PRN #15 capsule 02/12/19 Ondansetron Odt [Zofran] 4 mg TL Q6H PRN #15 tablet 02/12/19 - Allergies Allergies/Adverse Reactions: Allergies Allergy/AdvReac Type Severity Reaction Status Date / Time No Known Drug Allergies Allergy Verified 02/12/19 13:29 - Social History Does the pt smoke?: No Smoking Status: Never smoker Does the pt drink ETOH?: No Does the pt have substance abuse?: No - Immunizations Immunizations are current?: Yes - POLST Patient has POLST: No PD ED PE NORMAL - Vitals Vital signs reviewed: Yes - General General: Alert and oriented X 3, No acute distress, Well developed/nourished - HEENT HEENT: Pharynx benign - Neck Neck: Supple, no meningeal sign, No adenopathy - Cardiac Cardiac: RRR, No murmur - Respiratory Respiratory: Clear bilaterally - Abdomen Abdomen: Normal bowel sounds, Soft, Non tender, No organomegaly, Other (obese) - Back Back: No CVA TTP - Derm Derm: Normal color, Warm and dry Results - Vitals Vitals: Vital Signs - 24 hr 02/12/19 13:27 Temperature 35.7 C L Heart Rate 78 Respiratory 16 Rate Blood Pressure 130/81 H O2 Saturation 95 Oxygen O2 Source Room air - Labs Labs: Laboratory Tests 02/12/19 02/12/19 02/12/19 13:45 13:45 13:45 WBC 8.7 RBC 4.69 Hgb 14.2 Hct 42.1 MCV 89.8 MCH 30.3 MCHC 33.7 RDW 12.0 Plt Count 284 MPV 9.7 Neut # (Auto) 5.8 Lymph # (Auto) 2.1 Day # (Auto) 0.6 Eos # (Auto) 0.1 Baso # (Auto) 0.0 Absolute Nucleated RBC 0.00 Nucleated RBC % 0.0 Sodium 139 Potassium 4.1 Chloride 104 Carbon Dioxide 26 Anion Gap 9.0 BUN 9 Creatinine 0.6 Estimated GFR (MDRD) 121 Glucose 94 Calcium 9.4 Total Bilirubin 0.9 AST 57 H ALT 62 H Alkaline Phosphatase 77 Total Protein 7.4 Albumin 4.2 Globulin 3.2 Albumin/Globulin Ratio 1.3 Lipase 23 Urine Color YELLOW Urine Clarity CLEAR Urine pH 7.5 Ur Specific [place] 1.015 Urine Protein NEGATIVE Urine Glucose (UA) NEGATIVE Urine Ketones NEGATIVE Urine Occult Blood NEGATIVE Urine Nitrite NEGATIVE Urine Bilirubin NEGATIVE Urine Urobilinogen 0.2 (NORMAL) Ur Leukocyte Esterase NEGATIVE Ur Microscopic Review NOT INDICATED Urine Culture Comments NOT INDICATED Urine HCG, Qual NEGATIVE PD MEDICAL DECISION MAKING - ED course Complexity details: considered differential (No focal area of tenderness. Given the intermittent crampy pain nausea and vomiting and some loose stool, I would imagine either some inflammatory colitis or possibly viral enteritis. She is feeling improved with some IV fluids and medications. I did not see an indication for imaging as I do not feel there is a focal organ process going on.), d/w patient Departure - Departure Disposition: 01 Home, Self Care Clinical Impression: Nausea vomiting and diarrhea, Dehydration Condition: Stable Record reviewed to determine appropriate education?: Yes Instructions: ED Diet Vomiting Diarrhea Follow-Up: Álvaro Etienne MD [Primary Care Provider] - Prescriptions: Loperamide [Imodium] 2 mg PO Q6H PRN #15 capsule PRN Reason: Diarrhea Ondansetron Odt [Zofran] 4 mg TL Q6H PRN #15 tablet PRN Reason: Nausea / Vomiting Comments: [place] food and frequent fluids today. Stay well-hydrated. Ondansetron if needed for persistent nausea. Imodium if needed for diarrhea. Rest today and likely tomorrow. Recheck if not improved over the next day or 2. Return if worsening symptoms or localized continuous pain or fevers or other concerns. Forms: Activity restrictions
[2019-02-12 14:03] LABS: BILIRUBIN,URINE NEGATIVE (NEGATIVE); GLUCOSE, URINE (UA) NEGATIVE (NEGATIVE); KETONES,URINE (UA) NEGATIVE (NEGATIVE); LEUKOCYTE ESTERASE, URINE NEGATIVE (NEGATIVE); NITRITE,URINE NEGATIVE (NEGATIVE); OCCULT BLOOD,URINE NEGATIVE (NEGATIVE); PH,URINE 7.5 PH (5.0-7.5); PROTEIN,URINE NEGATIVE (NEGATIVE); UROBILINOGEN,URINE 0.2 (NORMAL) E.U./dL (NORMAL)
[2019-02-12 14:04] LABS: BASOPHILS % (AUTO) 0.5 %; EOSINOPHILS # (AUTO) 0.1 10^3/uL (0.0-0.7); HGB - HEMOGLOBIN 14.2 g/dL (12.0-16.0); LYMPHOCYTES # (AUTO) 2.1 10^3/uL (1.5-3.5); LYMPHOCYTES % (AUTO) 24.1 %; MEAN CORPUSCULAR HEMOGLOBIN 30.3 pg (27.0-31.0); MEAN CORPUSCULAR HGB CONC 33.7 g/dL (32.0-36.0); MEAN CORPUSCULAR VOLUME 89.8 fL (81.0-99.0); MEAN PLATELET VOLUME 9.7 fL (7.9-10.8); MONOCYTES # (AUTO) 0.6 10^3/uL (0.0-1.0); MONOCYTES % (AUTO) 6.9 %; NEUTROPHILS # (AUTO) 5.8 10^3/uL (1.5-6.6); PLT - PLATELET COUNT 284 10^3/uL (130-450); RED BLOOD COUNT 4.69 10^6/uL (4.20-5.40); WHITE BLOOD COUNT 8.7 x10^3/uL (4.8-10.8)
[2019-02-12 14:06] LABS: CLARITY,URINE CLEAR (CLEAR); HCG UR QUAL NEGATIVE
[2019-02-12 14:12] LABS: ALBUMIN 4.2 g/dL (3.2-5.5); ALBUMIN/GLOBULIN RATIO 1.3 (1.0-2.2); BILIRUBIN,TOTAL 0.9 mg/dL (0.2-1.0); CALCIUM 9.4 mg/dL (8.5-10.3); CREATININE 0.6 mg/dL (0.4-1.0); TOTAL PROTEIN 7.4 g/dL (6.7-8.2)
[2019-02-12] MEDS ORDERED: KETOROLAC 15 MG/ML VIAL IVP STA (14:18)
[2019-02-12] MEDS ORDERED: MORPHINE 2 MG/ML CARPUJECT IVP STA (14:18)
[2019-02-12] MEDS ORDERED: ONDANSETRON 4 MG/2 ML VIAL IVP STA (14:18)
[2019-02-12] MEDS ORDERED: SODIUM CHLORIDE 0.9% 1,000 ML IV ONE (14:18)
[2019-02-12 15:39] VITALS: BP 123/75
== END 2019-02-12 15:43 | disposition home or self-care (01) ==
LOC: ED 13:23
DX: R11.2 Nausea with vomiting, unspecified (principal); R19.7 Diarrhea, unspecified; E86.0 Dehydration; I10 Essential (primary) hypertension
CPT/HCPCS: 36415; 80053; 81001; 81003; 81025; 83690; 85025; 87086; 96361; 96374; 99283

== ENCOUNTER 2019-02-18 06:56 | Emergency (ER) | payer MEDICAID ==
[2019-02-18 07:10] VITALS: BP 126/92
--- NOTE | 2019-02-18 07:13 | ED Physician Documentation ---
PD HPI DYSPNEA - Stated complaint Stated Complaint: SOA - Chief complaint Chief Complaint: General - History obtained from History obtained from: Patient - History of Present Illness Timing - onset: How many days ago (3 or 4 days) Timing - details: Gradual onset, Still present Worsened by: Coughing Associated symptoms: Fever, Cough Similar symptoms before: Has not had sx before Recently seen: Emergency Dept (6 days ago for GI symptoms.) - Additional information Additional information: The patient is a 24-year-old female who complains of it being "hard to breathe." Her symptoms started 3 or 4 days ago and have progressed since that time. She reports a productive cough and intermittent fever. She denies chest pain, headache, sore throat, or leg pain. She was seen in the emergency department here 6 days ago with GI distress, and was diagnosed with viral gastroenteritis. She continues to have intermittent nausea, and reports that Zofran helps. She has a past history of cigarette smoking, having quit about 5 years ago. Review of Systems Constitutional: denies: Fever Nose: denies: Congestion Throat: denies: Sore throat Cardiac: denies: Chest pain / pressure Respiratory: reports: Dyspnea, Cough GI: reports: Nausea (intermittent). 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, Miscarriage(s) : None HEENT: None Psych: Depression, Anxiety, Bipolar disorder Musculoskeletal: Fibromyalgia, Other Derm: None - Past Surgical History Past Surgical History: Yes Ortho: Other - Present Medications Home Medications: Ambulatory Orders Medication Instructions Recorded Confirmed Omeprazole [PriLOSEC] 20 mg ORAL DAILY 12/13/15 02/18/19 Propranolol [Inderal] 20 mg PO DAILY 10/31/16 02/18/19 Citalopram [CeleXA] 40 mg PO DAILY 01/16/17 02/18/19 Lamotrigine [Lamotrigine ER] 200 mg PO DAILY 01/16/17 02/18/19 Guanfacine HCl 1 mg PO DAILY 06/07/17 02/18/19 Doxycycline Hyclate 100 mg PO BID #20 capsule 02/26/18 02/18/19 Ondansetron Odt [Zofran] 4 mg TL Q6H PRN #15 tablet 02/12/19 02/18/19 - Allergies Allergies/Adverse Reactions: Allergies Allergy/AdvReac Type Severity Reaction Status Date / Time No Known Drug Allergies Allergy Verified 02/18/19 07:09 - Social History Does the pt smoke?: No Smoking Status: Never smoker Does the pt drink ETOH?: No Does the pt have substance abuse?: No - Immunizations Immunizations are current?: Yes - POLST Patient has POLST: No PD ED PE NORMAL - Vitals Vital signs reviewed: Yes (Diastolic hypertension initially.) - General General: Alert and oriented X 3, Well developed/nourished, Other (Overweight) - HEENT HEENT: Atraumatic, EOMI, Pharynx benign - Neck Neck: No adenopathy, No JVD - Cardiac Cardiac: RRR, No murmur - Respiratory Respiratory: Clear bilaterally - Abdomen Abdomen: Soft, Non tender - Back Back: No CVA TTP - Derm Derm: No rash - Extremities Extremities: No edema, No calf tenderness / cord - Neuro Neuro: Alert and oriented X 3, No motor deficit, Normal speech Results - Vitals Vitals: Vital Signs - 24 hr 02/18/19 07:07 Temperature 35.7 C L Heart Rate 93 Respiratory 20 Rate Blood Pressure 126/92 H O2 Saturation 97 Oxygen O2 Source Room air - Rads (name of study) 2 -view CXR Radiology: Prelim report reviewed, EMP read contemporaneously, See rad report (No lung consolidation is ident fied.) PD MEDICAL DECISION MAKING - ED course Complexity details: reviewed old records, reviewed results, re-evaluated patient, considered differential, d/w patient, d/w family ED course: The patient's presentation is most consistent with viral upper respiratory infection and exacerbation of esophageal reflux disease. On examination her breath sounds are clear. Chest x-ray reveals no evidence of pneumonia or congestive heart failure, and I doubt pulmonary embolus. Treatment in the emergency department included administration of GI cocktail, which relieved her epigastric discomfort. I discussed with her and her mother the diagnosis, symptomatic treatment and outpatient follow-up, as well as potentially worrisome signs or symptoms that should prompt reevaluation in the emergency department. Departure - Departure Disposition: 01 Home, Self Care Clinical Impression: URI (upper respiratory infection) Qualifiers: URI type: unspecified viral URI Qualified Code(s): J06.9 - Acute upper respira tory infection, unspecified GERD (gastroesophageal reflux disease) Qualifiers: Esophagitis presence: esophagitis presence not specified Qualified Code(s): K21.9 - Gastro-esophageal reflux disease without esophagitis Condition: Stable Instructions: ED GERD, ED URI Viral Follow-Up: Álvaro Etienne MD [Primary Care Provider] - Comments: Taking omeprazole as previously prescribed. Consider using liquid antacid, such as Maalox or mild and to if you develop recurrent symptoms. You can use Tylenol if needed for fever or discomfort. Follow-up with your primary physician as scheduled. Return to the emergency department if you develop increasing difficulty breathing or otherwise worsening symptoms. Discharge Date/Time: 02/18/19 08:15
--- NOTE | 2019-02-18 07:42 | XRAY Report ---
Reason: cough with dyspnea Procedure Date: 02/18/2019 Accession Number: [id number] / [id number] Procedure: XR - Chest 2 View X-Ray CPT Code: 68602 FULL RESULT: EXAM: CHEST RADIOGRAPHY EXAM DATE: 02/18/2019 07:32 AM. CLINICAL HISTORY: Cough with dyspnea. COMPARISON: XR chest 1 view 04/11/2011. TECHNIQUE: 2 views. FINDINGS: Lungs/Pleura: No focal opacities evident. No pleural effusion. No pneumothorax. Normal volumes. Mediastinum: Heart and mediastinal contours are unremarkable. Other: Bilateral nipple piercings. IMPRESSION: No lung consolidation is identified RADIA
[2019-02-18] MEDS ORDERED: LIDOCAINE VISCOUS 2% 15 ML UDC MM STA (07:47)
[2019-02-18] MEDS ORDERED: MAG HYDROX/AL HYDROX/SIMETH 30 ML UDC PO STA (07:47)
== END 2019-02-18 08:15 | disposition home or self-care (01) ==
LOC: ED 06:56
DX: J06.9 Acute upper respiratory infection, unspecified (principal); K21.9 Gastro-esophageal reflux disease without esophagitis; I10 Essential (primary) hypertension; Z87.19 Personal history of other diseases of the digestive system; Z87.891 Personal history of nicotine dependence
CPT/HCPCS: 71046; 99283; 99284; A9270

== ENCOUNTER 2019-07-19 10:47 | Outpatient (CLI) | payer MEDICAID ==
[2019-07-19 23:01] LABS: TRICHOMONAS VAGINALIS DNA NEGATIVE (NEGATIVE)
== END 2019-07-19 23:59 | disposition home or self-care (01) ==
LOC: LAB.R 10:47
PROVIDERS: ATTEND Nurse Practitioner
DX: Z11.3 Encounter for screening for infections with a predominantly sexual mode of transmission (principal)
CPT/HCPCS: 87491; 87591; 87661

== ENCOUNTER 2019-07-26 09:26 | Outpatient (CLI) | payer MEDICAID ==
[2019-07-26 09:41] LABS: BASOPHILS # (AUTO) 0.1 10^3/uL (0.0-0.1); BASOPHILS % (AUTO) 0.6 %; EOSINOPHILS # (AUTO) 0.1 10^3/uL (0.0-0.7); EOSINOPHILS % (AUTO) 1.6 %; LYMPHOCYTES # (AUTO) 2.2 10^3/uL (1.5-3.5); LYMPHOCYTES % (AUTO) 27.2 %; MEAN CORPUSCULAR HEMOGLOBIN 30.3 pg (27.0-31.0); MEAN CORPUSCULAR HGB CONC 33.1 g/dL (32.0-36.0); MEAN CORPUSCULAR VOLUME 91.6 fL (81.0-99.0); MEAN PLATELET VOLUME 9.6 fL (7.9-10.8); MONOCYTES # (AUTO) 0.5 10^3/uL (0.0-1.0); MONOCYTES % (AUTO) 6.6 %; NEUTROPHILS # (AUTO) 5.2 10^3/uL (1.5-6.6); NEUTROPHILS % (AUTO) 63.5 %; PLT - PLATELET COUNT 246 10^3/uL (130-450); RED BLOOD COUNT 4.62 10^6/uL (4.20-5.40); RED CELL DISTRIBUTION WIDTH 12.3 % (12.0-15.0); WHITE BLOOD COUNT 8.2 x10^3/uL (4.8-10.8)
[2019-07-26 09:57] LABS: ALBUMIN 4.1 g/dL (3.2-5.5); ALBUMIN/GLOBULIN RATIO 1.4 (1.0-2.2); ALKALINE PHOSPHATASE 71 IU/L (42-121); ALT ALANINE AMINOTRANSFERASE 29 IU/L (10-60); AST ASPARTATE AMINOTRANSFERASE 22 IU/L (10-42); BILIRUBIN,TOTAL 0.7 mg/dL (0.2-1.0); BUN - BLOOD UREA NITROGEN 11 mg/dL (6-20); CALCIUM 9.2 mg/dL (8.5-10.3); CARBON DIOXIDE - CO2 27 mmol/L (21-32); CHLORIDE 104 mmol/L (101-111); CHOL/HDL RATIO 3.8 (<4.4); CHOLESTEROL 144 mg/dL; CREATININE 0.8 mg/dL (0.4-1.0); GFR - MDRD 87 (>89); GLUCOSE 97 mg/dL (70-100); HDL CHOLESTEROL 38 mg/dL; LDL CHOLESTEROL,CALCULATED 78 mg/dL; LDL/HDL RATIO 2.1 (<4.4); SODIUM 139 mmol/L (135-145); VLDL CHOLESTEROL 28 mg/dL
[2019-07-26 10:27] LABS: PROLACTIN 9.08 ng/mL
[2019-07-26 10:49] LABS: FOLLICLE STIMULATING HORMONE 3.85 mIU/mL
[2019-07-26 10:50] LABS: LUTEINIZING HORMONE 9.51 mIU/mL
== END 2019-07-26 09:27 | disposition home or self-care (01) ==
LOC: LAB 09:26
PROVIDERS: ATTEND Nurse Practitioner
DX: G47.39 Other sleep apnea (principal); E28.2 Polycystic ovarian syndrome; D50.9 Iron deficiency anemia, unspecified; F31.9 Bipolar disorder, unspecified; E66.01 Morbid (severe) obesity due to excess calories
CPT/HCPCS: 36415; 80053; 80061; 83001; 83002; 83721; 84146; 84443; 85025

== ENCOUNTER 2020-03-06 10:57 | Outpatient (CLI) | payer MEDICAID ==
[2020-03-06 11:19] LABS: BASOPHILS # (AUTO) 0.1 10^3/uL (0.0-0.1); BASOPHILS % (AUTO) 0.6 %; EOSINOPHILS # (AUTO) 0.1 10^3/uL (0.0-0.7); EOSINOPHILS % (AUTO) 1.3 %; HGB - HEMOGLOBIN 13.6 g/dL (12.0-16.0); LYMPHOCYTES # (AUTO) 2.2 10^3/uL (1.5-3.5); LYMPHOCYTES % (AUTO) 26.2 %; MEAN CORPUSCULAR HEMOGLOBIN 30.4 pg (27.0-31.0); MEAN CORPUSCULAR HGB CONC 33.3 g/dL (32.0-36.0); MEAN CORPUSCULAR VOLUME 91.5 fL (81.0-99.0); MEAN PLATELET VOLUME 9.7 fL (7.9-10.8); MONOCYTES # (AUTO) 0.8 10^3/uL (0.0-1.0); MONOCYTES % (AUTO) 9.1 %; NEUTROPHILS # (AUTO) 5.2 10^3/uL (1.5-6.6); NEUTROPHILS % (AUTO) 62.4 %; PLT - PLATELET COUNT 274 10^3/uL (130-450); RED BLOOD COUNT 4.47 10^6/uL (4.20-5.40); RED CELL DISTRIBUTION WIDTH 12.1 % (12.0-15.0); WHITE BLOOD COUNT 8.4 x10^3/uL (4.8-10.8)
[2020-03-06 11:32] LABS: ALBUMIN 4.5 g/dL (3.2-5.5); ALBUMIN/GLOBULIN RATIO 1.4 (1.0-2.2); BILIRUBIN,TOTAL 0.7 mg/dL (0.2-1.0); CALCIUM 9.8 mg/dL (8.5-10.3); CREATININE 0.9 mg/dL (0.4-1.0); TOTAL PROTEIN 7.7 g/dL (6.7-8.2)
--- NOTE | 2020-03-06 12:30 | XRAY Report ---
PROCEDURE: Lumbar Spine 2 View INDICATIONS: LAB,NECK,LOW BACK LT SHOULDER PAIN TECHNIQUE: 3 views of the lumbar spine were acquired. COMPARISON: None. FINDINGS: Bones: No fracture. Scattered multilevel endplate spurring and diffuse facet arthropathy. Mild dext rocurvature. Mild narrowing of the L1-L2 and L5-S1 disc space. Straightening of the normal lordotic curvature. In cidentally noted IUD IMPRESSION: Mild lumbar spondylosis and facet arthropathy. Mild dextrocurvature Reviewed by: David Dewey MD on 03/06/2020 12:29 PM PDT Approved by: David Dewey MD on 03/06/2020 12:29 PM PDT Station ID: [id number]
--- NOTE | 2020-03-06 12:32 | XRAY Report ---
PROCEDURE: Cervical Spine 2 View INDICATIONS: NECK PAIN/LEFT SHOULDER PAIN TECHNIQUE: 3 view(s) of the cervical spine were acquired. COMPARISON: None. FINDINGS: Bones: No fracture. Scattered multilevel endplate spurring and diffuse facet arthropathy. Mild reversal of the normal lordotic curvature. Soft tissues: No prevertebral soft tissue swelling. IMPRESSION: Mild cervical spondylosis and reversal of the normal lordotic curvature Reviewed by: David Dewey MD on 03/06/2020 12:31 PM PDT Approved by: David Dewey MD on 03/06/2020 12:31 PM PDT Station ID: [id number]
--- NOTE | 2020-03-06 12:58 | XRAY Report ---
PROCEDURE: Shoulder 2 View LT INDICATIONS: LAB,NECK,LOW BACK LT SHOULDER PAIN TECHNIQUE: 2 views of the shoulder were acquired. COMPARISON: None. FINDINGS: Bones: No fractures or dislocations. No suspicious bony lesions. Visualized ribs appear intact. M ild degenerative joint disease Soft tissues: No suspicious soft tissue calcifications. IMPRESSION: Mild joint degeneration. If the patient's pain or other symptoms persist, consider furth er evaluation with MRI. Reviewed by: David Dewey MD on 03/06/2020 12:57 PM PDT Approved by: David Dewey MD on 03/06/2020 12:57 PM PDT Station ID: [id number]
== END 2020-03-06 10:58 | disposition home or self-care (01) ==
LOC: LAB 10:57 → DI 10:58
PROVIDERS: ATTEND Family Medicine
DX: M47.816 Spondylosis without myelopathy or radiculopathy, lumbar region (principal); M47.812 Spondylosis without myelopathy or radiculopathy, cervical region; M19.012 Primary osteoarthritis, left shoulder; E28.2 Polycystic ovarian syndrome; R59.0 Localized enlarged lymph nodes
CPT/HCPCS: 36415; 72040; 72100; 80053; 84443; 85025

== ENCOUNTER 2020-04-06 09:25 | Emergency (ER) | payer MEDICAID ==
[2020-04-06] MEDS ORDERED: KETOROLAC 60 MG/2 ML VIAL IM STA (10:21)
[2020-04-06 10:41] VITALS: BP 151/96
--- NOTE | 2020-04-06 17:47 | ED Physician Documentation ---
History of Present Illness - Stated complaint Stated Complaint: LT SHOULDER PX - Chief complaint Chief Complaint: Trauma Ext - History obtained from History obtained from: Patient - Additonal information Additional information: 25-year-old woman with history of fibromyalgia presents with chronic left shoulder pain that is nonradiating, aching, worse with range of motion, improved with muscle relaxants. Denies focal weakness or neuro deficits. 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, Miscarriage(s) : None HEENT: None Psych: Depression, Anxiety, Bipolar disorder Musculoskeletal: Fibromyalgia, Other Derm: Eczema - Past Surgical History Past Surgical History: Yes Ortho: Other - Present Medications Home Medications: Ambulatory Orders Medication Instructions Recorded Confirmed Omeprazole [PriLOSEC] 20 mg ORAL DAILY 12/13/15 02/18/19 Propranolol [Inderal] 20 mg PO DAILY 10/31/16 02/18/19 Citalopram [CeleXA] 40 mg PO DAILY 01/16/17 02/18/19 Lamotrigine [Lamotrigine ER] 200 mg PO DAILY 01/16/17 02/18/19 Guanfacine HCl 1 mg PO DAILY 06/07/17 02/18/19 Doxycycline Hyclate 100 mg PO BID #20 capsule 02/26/18 02/18/19 Ondansetron Odt [Zofran] 4 mg TL Q6H PRN #15 tablet 02/12/19 02/18/19 Cyclobenzaprine [Flexeril] 10 mg PO TID PRN 2 Days #6 tablet 04/06/20 - Allergies Allergies/Adverse Reactions: Allergies Allergy/AdvReac Type Severity Reaction Status Date / Time No Known Drug Allergies Allergy Verified 04/06/20 09:29 - Social History Does the pt smoke?: No Smoking Status: Former smoker Does the pt drink ETOH?: No Does the pt have substance abuse?: No - Immunizations Immunizations are current?: Yes - POLST Patient has POLST: No PD ED PE NORMAL - Vitals Vital signs reviewed: Yes - General General: Alert and oriented X 3 - Extremities Extremities: No deformity, Other (Left shoulder tender with range of motion. Sensorial neural and vascular intact.) - Neuro Neuro: Alert and oriented X 3 Results - Vitals Vitals: Vital Signs - 24 hr 04/06/20 04/06/20 09:29 10:40 Temperature 36.1 C L 36.7 C Heart Rate 98 80 Respiratory 18 18 Rate Blood Pressure 135/91 H 151/96 H O2 Saturation 98 97 Oxygen O2 Source Room air PD MEDICAL DECISION MAKING - ED course Complexity details: re-evaluated patient, d/w patient ED course: 25-year-old woman with history of fibromyalgia and prior injury to the left shoulder presents with chronic left shoulder pain that has acutely worsened. Patient has improvement in her symptoms with symptomatic therapy. Will DC with return precautions. Follow-up with primary for physical therapy referral. Departure - Departure Disposition: 01 Home, Self Care Clinical Impression: Shoulder pain, Fibromyalgia Instructions: RICE Follow-Up: Quincy Beckett MD [Provider Admit Priv/Credential] - Prescriptions: Cyclobenzaprine [Flexeril] 10 mg PO TID PRN 2 Days #6 tablet PRN Reason: Pain Comments: Follow up for physical therapy. Return to the ed for any new or worsening sympto ms. You may benefit from MRI to evaluate the shoulder for soft tissue injury. [facility] [address] [place] Open Closes 5 PM Discharge Date/Time: 04/06/20 10:56
== END 2020-04-06 10:56 | disposition home or self-care (01) ==
LOC: ED 09:25
DX: M25.512 Pain in left shoulder (principal); G89.29 Other chronic pain; M79.7 Fibromyalgia; I10 Essential (primary) hypertension; Z87.891 Personal history of nicotine dependence
CPT/HCPCS: 96372; 99283

== ENCOUNTER 2020-07-06 18:13 | Emergency (ER) | payer MEDICAID ==
[2020-07-06 19:34] LABS: BASOPHILS # (AUTO) 0.1 10^3/uL (0.0-0.1); BASOPHILS % (AUTO) 0.6 %; EOSINOPHILS # (AUTO) 0.1 10^3/uL (0.0-0.7); HGB - HEMOGLOBIN 13.5 g/dL (12.0-16.0); LYMPHOCYTES # (AUTO) 2.3 10^3/uL (1.5-3.5); LYMPHOCYTES % (AUTO) 28.5 %; MEAN CORPUSCULAR HEMOGLOBIN 30.6 pg (27.0-31.0); MEAN CORPUSCULAR HGB CONC 32.5 g/dL (32.0-36.0); MEAN CORPUSCULAR VOLUME 94.3 fL (81.0-99.0); MEAN PLATELET VOLUME 10.3 fL (7.9-10.8); MONOCYTES # (AUTO) 0.6 10^3/uL (0.0-1.0); MONOCYTES % (AUTO) 7.2 %; NEUTROPHILS % (AUTO) 62.6 %; PLT - PLATELET COUNT 257 10^3/uL (130-450); RED BLOOD COUNT 4.41 10^6/uL (4.20-5.40); RED CELL DISTRIBUTION WIDTH 12.4 % (12.0-15.0)
[2020-07-06] MEDS ORDERED: ACETAMINOPHEN 1,000 MG/100 ML 100 ML IV ONE (19:38)
[2020-07-06 19:47] LABS: ALBUMIN 4.6 g/dL (3.2-5.5); ALBUMIN/GLOBULIN RATIO 1.6 (1.0-2.2); BILIRUBIN,TOTAL 0.8 mg/dL (0.2-1.0); CALCIUM 9.4 mg/dL (8.5-10.3); CREATININE 0.9 mg/dL (0.4-1.0); TOTAL PROTEIN 7.5 g/dL (6.7-8.2)
[2020-07-06 20:30] VITALS: BP 124/82
[2020-07-06] MEDS ORDERED: HYDROcod/ACET 5/325 Prepack 4 PO STA (21:12)
--- NOTE | 2020-07-06 21:13 | ED Physician Documentation ---
PD HPI ABD PAIN - Stated complaint Stated Complaint: RIGHT SIDED ABD PX - Chief complaint Chief Complaint: Abd Pain - History obtained from History obtained from: Patient - History of Present Illness Timing - onset: Today Timing - duration: Days (1) Timing - details: Gradual onset Pain level max: 8 Pain level now: 5 Quality: Aching, Pain Location: RUQ Radiation: No: Chest, , Lower back, Left flank, Left shoulder, Right flank, Right shoulder, Upper back Improved by: Other (nothing) Worsened by: Eating Associated symptoms: Nausea. No: Fever, Vomiting, Hematemesis, Diarrhea, Constipation, Melena, Hematochezia, Dysuria, Hematuria Recently seen: Emergency Dept (earlier today for same, diagnosed with biliary colic. 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, Miscarriage(s) : None HEENT: None Psych: Depression, Anxiety, Bipolar disorder Musculoskeletal: Fibromyalgia, Other Derm: Eczema - Past Surgical History Past Surgical History: Yes Ortho: Other - Present Medications Home Medications: Ambulatory Orders Medication Instructions Recorded Confirmed Omeprazole [PriLOSEC] 20 mg ORAL DAILY 12/13/15 07/06/20 Propranolol [Inderal] 20 mg PO BID 10/31/16 07/06/20 Lamotrigine [Lamotrigine ER] 200 mg PO BID 01/16/17 07/06/20 Dextroamphetamine/Amphetamine 20 mg PO TID 07/06/20 07/06/20 [Adderall 20 mg Tablet] HYDROcod/ACETAM 5/325 [[place] 5/325] 1 - 2 ea PO Q6H PRN #14 tab 07/06/20 Ibuprofen [Motrin] 600 mg PO Q6H PRN #30 tab 07/06/20 07/06/20 Ondansetron Odt [Zofran Odt] 4 mg TL Q6H PRN #10 tab 07/06/20 07/06/20 Ondansetron Odt [Zofran] 4 mg TL Q6H PRN #10 tab 07/06/20 Spironolactone [Aldactone] 150 mg PO DAILY 07/06/20 07/06/20 buPROPion [Wellbutrin Xl] 150 mg PO DAILY 07/06/20 07/06/20 metFORMIN [Glucophage] 500 mg PO DAILY 07/06/20 07/06/20 - Allergies Allergies/Adverse Reactions: Allergies Allergy/AdvReac Type Severity Reaction Status Date / Time No Known Drug Allergies Allergy Verified 07/06/20 18:20 - Social History Does the pt smoke?: No Smoking Status: Never smoker Does the pt drink ETOH?: No Does the pt have substance abuse?: No - Immunizations Immunizations are current?: Yes - POLST Patient has POLST: No PD ED PE NORMAL - Vitals Vital signs reviewed: Yes - General General: Alert and oriented X 3, No acute distress - HEENT HEENT: Moist mucous membranes - Neck Neck: Supple, no meningeal sign - Cardiac Cardiac: RRR - Respiratory Respiratory: No respiratory distress, Clear bilaterally - Abdomen Abdomen: Other (Mild tenderness to palpation right upper quadrant. Negative Arboleda sign. No peritoneal signs Otherwise normal examination of the abdomen) - Back Back: No CVA TTP - Derm Derm: Warm and dry - Neuro Neuro: Alert and oriented X 3 Results - Vitals Vitals: Vital Signs - 24 hr 07/06/20 07/06/20 18:21 20:29 Temperature 36.9 C 36.7 C Heart Rate 97 88 Respiratory 18 18 Rate Blood Pressure 146/100 H 124/82 H O2 Saturation 100 100 Oxygen O2 Source Room air - Labs Labs: Laboratory Tests 07/06/20 07/06/20 19:27 19:27 WBC 8.0 RBC 4.41 Hgb 13.5 Hct 41.6 MCV 94.3 MCH 30.6 MCHC 32.5 RDW 12.4 Plt Count 257 MPV 10.3 Neut # (Auto) 5.0 Lymph # (Auto) 2.3 [place] # (Auto) 0.6 Eos # (Auto) 0.1 Baso # (Auto) 0.1 Absolute Nucleated RBC 0.00 Nucleated RBC % 0.0 Sodium 136 Potassium 3.7 Chloride 103 Carbon Dioxide 24 Anion Gap 9.0 BUN 8 Creatinine 0.9 Estimated GFR (MDRD) 75 L Glucose 84 Calcium 9.4 Total Bilirubin 0.8 AST 18 ALT 20 Alkaline Phosphatase 68 Total Protein 7.5 Albumin 4.6 Globulin 2.9 Albumin/Globulin Ratio 1.6 Lipase 29 PD MEDICAL DECISION MAKING - ED course Complexity details: reviewed old records, reviewed results, re-evaluated patient, considered differential, d/w patient, 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 Afebrile. No vomiting. Denies any possibility of . No changes on laboratory testing. Pain well controlled. Discussed the case with general surgery on-call Dr. Soto, she recommends follow-up in the office. The patient does not want to see the surgeon tonight. She is comfortable going home with pain medication. She will go on a clear liquid diet for the next 24 hours and return if she worsens, especially for fevers or continuous pain. Patient counseled regarding signs and symptoms for which I believe and urgent re-evaluation would be necessary. Patient with good understanding of and agreement to plan and is comfortable going home at this time This document was made in part using voice recognition software. While efforts are made to proofread this document, sound alike and grammatical errors may occur. Departure - Departure Disposition: 01 Home, Self Care Clinical Impression: Biliary colic Condition: Good Instructions: ED Gallstone W Biliary Colic, ED Diet Clear Liquid Follow-Up: Álvaro Etienne MD [Primary Care Provider] - Ronit Soto MD [Provider Admit Priv/Credential] - Prescriptions: HYDROcod/ACETAM 5/325 [[place] 5/325] 1 - 2 ea PO Q6H PRN #14 tab PRN Reason: Pain Ondansetron Odt [Zofran] 4 mg TL Q6H PRN #10 tab PRN Reason: Nausea / Vomiting Comments: Follow-up with your doctor for a referral to general surgery. You may be better off being referred to a bariatric surgery center with more specialized equipment. I did discuss this with Dr. Soto, she states that they may end up referring you to a bariatric center. Return if you worsen, especially for fevers or vomiting. You need to stay on a clear liquid diet for at least the next 24 hours[address] not drink alcohol or drive while on narcotic pain medicine. Note that many narcotic pain relievers also contain tylenol/acetaminophen. Please ensure that your total dose of acetaminophen from all sources does not exceed 3 grams (3000mg) per day. You may constipated on this medication, take a stool softener such as "Colace" twice a day while you are on it. Also recommend a [id number] laxative such as senna or MiraLAX any day that you do not have a bowel movement. If you received narcotic pain medication in the emergency department, do not drive or operate machinery for the next 24 hours. Discharge Date/Time: 07/06/20 21:24
== END 2020-07-06 21:24 | disposition home or self-care (01) ==
LOC: ED 18:13
DX: K80.50 Calculus of bile duct without cholangitis or cholecystitis without obstruction (principal); K80.20 Calculus of gallbladder without cholecystitis without obstruction; K76.0 Fatty (change of) liver, not elsewhere classified
CPT/HCPCS: 36415; 76705; 80053; 81001; 81025; 83690; 85025; 96361; 96374; 99284; J0131; J7120; 81003; 87086

== ENCOUNTER 2021-09-14 13:56 | Emergency (ER) | payer MEDICAID ==
[2021-09-14 14:05] VITALS: BP 145/98
--- NOTE | 2021-09-14 14:05 | ED Physician Documentation ---
PD HPI FEMALE - Stated complaint Stated Complaint: FEMALE - Chief complaint Chief Complaint: UTI - History obtained from History obtained from: Patient - History of Present Illness Timing - onset: How many weeks ago (1) Timing - duration: Weeks (1) Timing - details: Gradual onset, Still present, Waxing and waning Associated symptoms: Vaginal discharge (mild yeast type discharge.), Dysuria, Urinary frequency. No: Fever, Genital sore/lesion Contributing factors: No: , Exposed to STD Similar symptoms before: Diagnosis (she has had UTI several times with simlar symptoms in the past.) Recently seen: Not recently seen Review of Systems Constitutional: denies: Fever, Chills, Myalgias Nose: denies: Rhinorrhea / runny nose, Congestion Throat: denies: Sore throat Respiratory: denies: Cough GI: denies: Abdominal Pain, Nausea, Vomiting : reports: Dysuria, Frequency, Discharge. 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, Miscarriage(s) : None HEENT: None Psych: Depression, Anxiety, Bipolar disorder Musculoskeletal: Fibromyalgia, Other Derm: Eczema - Past Surgical History Past Surgical History: Yes Ortho: Other - Present Medications Home Medications: Ambulatory Orders Medication Instructions Recorded Confirmed Omeprazole [PriLOSEC] 20 mg ORAL DAILY 12/13/15 07/06/20 Propranolol [Inderal] 20 mg PO BID 10/31/16 07/06/20 Lamotrigine [Lamotrigine ER] 200 mg PO BID 01/16/17 07/06/20 Dextroamphetamine/Amphetamine 20 mg PO TID 07/06/20 07/06/20 [Adderall 20 mg Tablet] HYDROcod/ACETAM 5/325 [[place] 5/325] 1 - 2 ea PO Q6H PRN #14 tab 07/06/20 Ibuprofen [Motrin] 600 mg PO Q6H PRN #30 tab 07/06/20 07/06/20 Ondansetron Odt [Zofran Odt] 4 mg TL Q6H PRN #10 tab 07/06/20 07/06/20 Ondansetron Odt [Zofran] 4 mg TL Q6H PRN #10 tab 07/06/20 Spironolactone [Aldactone] 150 mg PO DAILY 07/06/20 07/06/20 buPROPion [Wellbutrin Xl] 150 mg PO DAILY 07/06/20 07/06/20 metFORMIN [Glucophage] 500 mg PO DAILY 07/06/20 07/06/20 Fluconazole [Diflucan] 150 mg PO Q3D 6 Days #2 tablet 09/14/21 Ondansetron Odt [Zofran] 4 mg TL Q6H PRN #10 tablet 09/14/21 Phenazopyridine HCl [Pyridium] 100 mg PO TID PRN #15 tablet 09/14/21 cephALEXin [Keflex] 500 mg PO TID 5 Days #15 cap 09/14/21 - Allergies Allergies/Adverse Reactions: Allergies Allergy/AdvReac Type Severity Reaction Status Date / Time No Known Drug Allergies Allergy Verified 09/14/21 14:04 - Social History Does the pt smoke?: No Smoking Status: Never smoker Does the pt drink ETOH?: No Does the pt have substance abuse?: No - Immunizations Immunizations are current?: Yes - POLST Patient has POLST: No PD ED PE NORMAL - Vitals Vital signs reviewed: Yes - General General: Alert and oriented X 3, No acute distress, Well developed/nourished - Abdomen Abdomen: Soft, Non tender - Female Female : Deferred - Rectal Rectal: Deferred - Back Back: No CVA TTP Results - Vitals Vitals: Vital Signs - 24 hr 09/14/21 13:59 Temperature 36.6 C Heart Rate 80 Respiratory 17 Rate Blood Pressure 145/98 H O2 Saturation 98 Oxygen O2 Source Room air - Labs Labs: Laboratory Tests 09/14/21 09/14/21 14:18 15:30 Urine Color LIGHT YELLOW Urine Clarity CLEAR Urine pH 8.0 H Ur Specific [place] 1.015 Urine Protein NEGATIVE Urine Glucose (UA) NEGATIVE Urine Ketones NEGATIVE Urine Occult Blood NEGATIVE Urine Nitrite NEGATIVE Urine Bilirubin NEGATIVE Urine Urobilinogen 0.2 (NORMAL) Ur Leukocyte Esterase TRACE H Urine RBC 0-5 Urine WBC 0-3 Ur Squamous Epith Cells RARE Squamous Urine Bacteria Rare Ur Microscopic Review INDICATED Urine Culture Comments INDICATED Urine HCG, Qual NEGATIVE C. glabrata (PCR) NEGATIVE C. krusei (PCR) NEGATIVE [place] species DNA POSITIVE A T. vaginalis (PCR) NEGATIVE Bact Vaginosis (PCR) NEGATIVE PD MEDICAL DECISION MAKING - ED course Complexity details: reviewed results (Urine culture pending. UA minimally positive. Has cndida but not as likely to cause dysuria. ), considered differential, d/w patient Departure - Departure Disposition: 01 Home, Self Care Clinical Impression: Dysuria, Lower abdominal pain Condition: Stable Record reviewed to determine appropriate education?: Yes Instructions: ED UTI Cystitis Female Prescriptions: Fluconazole [Diflucan] 150 mg PO Q3D 6 Days #2 tablet cephALEXin [Keflex] 500 mg PO TID 5 Days #15 cap Phenazopyridine HCl [Pyridium] 100 mg PO TID PRN #15 tablet PRN Reason: Abdominal Pain Ondansetron Odt [Zofran] 4 mg TL Q6H PRN #10 tablet PRN Reason: Nausea / Vomiting Comments: The bladder scanner showed only a small amount of urine still in the bladder. You are not having urinary retention. Your symptoms would be more suggestive of an irritation of the urethra and bladder. Your urine sample is suggestive of a bladder infection though not highly positive. We can treated as a bladder infection at this point with antibiotics and phenazopyridine. We did have you obtain some vaginal cultures and these will result tomorrow. We will call you if there is signs of vaginitis as a cause for your symptoms instead. You did feel there was likely some yeast infection going on so we can treat with Diflucan every 3 days for 2 more doses. You did receive a dose here today. I transmitted your prescriptions to [facility] pharmacy. Stay well-hydrated. Tylenol or ibuprofen if needed for pains. Discharge Date/Time: 09/14/21 15:48
[2021-09-14] MEDS: ONDANSETRON ODT 4 MG TABLET TL STA (14:20)
[2021-09-14] MEDS: NAPROXEN 250 MG TABLET PO STA (14:20)
[2021-09-14] MEDS: PHENAZOPYRIDINE 100 MG TABLET PO STA (14:20)
[2021-09-14 14:28] LABS: BILIRUBIN,URINE NEGATIVE (NEGATIVE); GLUCOSE, URINE (UA) NEGATIVE (NEGATIVE); KETONES,URINE (UA) NEGATIVE (NEGATIVE); LEUKOCYTE ESTERASE, URINE TRACE (NEGATIVE); NITRITE,URINE NEGATIVE (NEGATIVE); OCCULT BLOOD,URINE NEGATIVE (NEGATIVE); PROTEIN,URINE NEGATIVE (NEGATIVE); UROBILINOGEN,URINE 0.2 (NORMAL) E.U./dL (NORMAL)
[2021-09-14 14:30] LABS: CLARITY,URINE CLEAR (CLEAR); HCG UR QUAL NEGATIVE
[2021-09-14 14:38] LABS: BACTERIA,URINE Rare /HPF (None Seen); RBC,URINE 0-5 /HPF (0-5); SQUAMOUS EPITHELIAL CELL,UR RARE Squamous (<= Few); WBC,URINE 0-3 /HPF (0-5)
[2021-09-14] MEDS: FLUCONAZOLE 100 MG TABLET PO STA (15:18)
[2021-09-14] MEDS: cephALEXin 250 MG CAPSULE PO STA (15:44)
[2021-09-14 17:50] LABS: BACTERIAL VAGINOSIS DNA NEGATIVE (NEGATIVE); CANDIDA GLABRATA DNA NEGATIVE (NEGATIVE); CANDIDA GROUP DNA POSITIVE (NEGATIVE); CANDIDA KRUSEI DNA NEGATIVE (NEGATIVE); TRICHOMONAS VAGINALIS DNA NEGATIVE (NEGATIVE)
[2021-09-14 23:09] LABS: CHLAMYDIA TRACHOMATIS DNA NEGATIVE (NEGATIVE); NEISSERIA GONORRHOEAE DNA NEGATIVE (NEGATIVE)
== END 2021-09-14 15:48 | disposition home or self-care (01) ==
LOC: ED 13:56
DX: R30.0 Dysuria (principal); R10.30 Lower abdominal pain, unspecified
CPT/HCPCS: 51798; 81001; 81025; 81514; 87077; 87086; 87491; 87591; 87661; 99282; 99284; A9270; Q0162; 81003

== ENCOUNTER 2021-10-30 01:45 | Emergency (ER) | payer MEDICAID ==
[2021-10-30 02:04] VITALS: BP 149/91
--- NOTE | 2021-10-30 03:08 | ED Physician Documentation ---
PD HPI BACK PAIN - Stated complaint Stated Complaint: LOWER BACK PAIN - Chief complaint Chief Complaint: Back Pain - History obtained from History obtained from: Patient - History of Present Illness Timing - onset: How many days ago (2) Timing - details: Gradual onset Pain level now: 6 Location: Lower Quality: Pain, Spasm Associated symptoms: No: Fever, Weakness, Numbness, Incontinent of urine, Unable to urinate, Hematuria, Incontinent of stool Improves with: Rest Worsened by: Movement Similar symptoms before: Has not had sx before - Additional information Additional information: c/o midline atraumatic low back pain , gradual onset two days ago without inciting event. Pain is distinctly worse with movement, denies weakness, numbness, fever, injury. 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, Miscarriage(s) : None HEENT: None Psych: Depression, Anxiety, Bipolar disorder Musculoskeletal: Fibromyalgia, Other Derm: Eczema - Past Surgical History Past Surgical History: Yes Ortho: Other - Present Medications Home Medications: Ambulatory Orders Medication Instructions Recorded Confirmed Omeprazole [PriLOSEC] 20 mg ORAL DAILY 12/13/15 10/30/21 Propranolol [Inderal] 20 mg PO BID 10/31/16 10/30/21 Lamotrigine [Lamotrigine ER] 200 mg PO BID 01/16/17 10/30/21 Dextroamphetamine/Amphetamine 20 mg PO TID 07/06/20 10/30/21 [Adderall 20 mg Tablet] HYDROcod/ACETAM 5/325 [[place] 5/325] 1 - 2 ea PO Q6H PRN #14 tab 07/06/20 10/30/21 Ibuprofen [Motrin] 600 mg PO Q6H PRN #30 tab 07/06/20 10/30/21 Ondansetron Odt [Zofran Odt] 4 mg TL Q6H PRN #10 tab 07/06/20 10/30/21 Ondansetron Odt [Zofran] 4 mg TL Q6H PRN #10 tab 07/06/20 10/30/21 Spironolactone [Aldactone] 150 mg PO DAILY 07/06/20 10/30/21 buPROPion [Wellbutrin Xl] 150 mg PO DAILY 07/06/20 10/30/21 metFORMIN [Glucophage] 500 mg PO DAILY 07/06/20 10/30/21 Fluconazole [Diflucan] 150 mg PO Q3D 6 Days #2 tablet 09/14/21 10/30/21 Ondansetron Odt [Zofran] 4 mg TL Q6H PRN #10 tablet 09/14/21 10/30/21 Phenazopyridine HCl [Pyridium] 100 mg PO TID PRN #15 tablet 09/14/21 10/30/21 cephALEXin [Keflex] 500 mg PO TID 5 Days #15 cap 09/14/21 10/30/21 methocarbamoL [Robaxin] 500 mg PO Q6H PRN #20 tablet 10/30/21 oxyCODONE/ACET 5/325 [Percocet 5 1 - 2 each PO Q6H PRN #14 tablet 10/30/21 mg/325 mg] - Allergies Allergies/Adverse Reactions: Allergies Allergy/AdvReac Type Severity Reaction Status Date / Time No Known Drug Allergies Allergy Verified 10/30/21 02:04 - Social History Does the pt smoke?: No Smoking Status: Never smoker Does the pt drink ETOH?: No Does the pt have substance abuse?: No - Immunizations Immunizations are current?: Yes - POLST Patient has POLST: No PD ED PE NORMAL - Vitals Vital signs reviewed: Yes - General General: Alert and oriented X 3, No acute distress, Well developed/nourished - Abdomen Abdomen: Soft, Non tender - Back Back: No CVA TTP, No spinal TTP - Derm Derm: Normal color, Warm and dry, No rash - Extremities Extremities: No edema - Neuro Neuro: No motor deficit (5/5 bilateral dorsi/plantarflexion and bilateral leg raise), Other (2+/4 bilateral patellar DTR without clonus) Results - Vitals Vitals: Oxygen O2 Source Room air PD MEDICAL DECISION MAKING - ED course Complexity details: reviewed old records, considered differential, d/w patient ED course: c/o 2 days of atraumatic LBP. No "red flags": no fever, weakness, numbness, urinary/bowel incontinence, injury, or rash. Suspect musculoskeletal etiology; emergent testing is not indicated at this time. Will trial on robaxin and percocet, return if worse, follow up with primary care provider Departure - Departure Disposition: 01 Home, Self Care Clinical Impression: Low back pain Condition: Good Instructions: ED Neck Back Pain General Prescriptions: oxyCODONE/ACET 5/325 [Percocet 5 mg/325 mg] 1 - 2 each PO Q6H PRN #14 tablet PRN Reason: Pain methocarbamoL [Robaxin] 500 mg PO Q6H PRN #20 tablet PRN Reason: Spasms Comments: Prescriptions for robaxin (muscle relaxer) and oxycodone/acteminophen (narcotic pain medication) have been electronically submitted to [facility] pharmacy in [place]. Take the robaxin OR the flexeril (whichever is more effective for your muscle spasms). Follow up with your primary care provider in 3-5 days if the pain has not resolved Discharge Date/Time: 10/30/21 03:48
[2021-10-30] MEDS ORDERED: oxyCODONE/ACET 5/325 Prepack 4 PO STA (03:31)
== END 2021-10-30 03:48 | disposition home or self-care (01) ==
LOC: ED 01:45
DX: M54.50 Low back pain, unspecified (principal); I10 Essential (primary) hypertension
CPT/HCPCS: 99282; 99283

== ENCOUNTER 2022-09-19 19:20 | Emergency (ER) | payer MEDICAID ==
--- NOTE | 2022-09-19 20:24 | ED Physician Documentation ---
PD HPI HEADACHE - Stated complaint Stated Complaint: HEADACHE/NAUSEA - Chief complaint Chief Complaint: Neuro - History obtained from History obtained from: Patient - History of Present Illness Worst headache ever?: No: Worst headache ever? - Additional information Additional information: HPI from patient. Patient complains of headache, right sided and occipital in location. Headache started 2 to 3 days ago, gradual onset. Patient says that the headache is not the worst she has had and is consistent with previous headaches ascribed to her migraine headaches. Along these lines, patient took a dose of Imitrex earlier today, a dose of Toradol last night, dose of Zofran at 2 PM today, and a tablet of Percocet earlier today; none of these led to adequate symptomatic improvement. Furthermore, since earlier today, she has developed occasional skipped-beat palpitations, dizziness, fatigue, "weak and shaky" (per patient). She has had nausea with the headache for the past 2 to 3 days although no vomiting. She has had intermittent blurry vision, predominantly in the right eye, with this headache, although she has had similar symptoms with previous he adaches. Regarding her headache, there is some degree of worsening with light (mild photophobia).There are no ameliorating factors. Review of Systems Constitutional: reports: Fatigue. denies: Fever Cardiac: reports: Palpitations. denies: Chest pain / pressure Respiratory: reports: Reviewed and negative GI: reports: Nausea. denies: Abdominal Pain, Vomiting : denies: Dysuria, Frequency, Now EGA (has IUD) Neurologic: reports: Headache. 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, Miscarriage(s) : None HEENT: None Psych: Depression, Anxiety, Bipolar disorder Musculoskeletal: Fibromyalgia, Other Derm: Eczema - Past Surgical History Past Surgical History: Yes Ortho: Other - Present Medications Home Medications: Ambulatory Orders Medication Instructions Recorded Confirmed Omeprazole [PriLOSEC] 20 mg ORAL DAILY 12/13/15 10/30/21 Propranolol [Inderal] 20 mg PO BID 10/31/16 10/30/21 Lamotrigine [Lamotrigine ER] 200 mg PO BID 01/16/17 10/30/21 Dextroamphetamine/Amphetamine 20 mg PO TID 07/06/20 10/30/21 [Adderall 20 mg Tablet] HYDROcod/ACETAM 5/325 [[place] 5/325] 1 - 2 ea PO Q6H PRN #14 tab 07/06/20 10/30/21 Ibuprofen [Motrin] 600 mg PO Q6H PRN #30 tab 07/06/20 10/30/21 Ondansetron Odt [Zofran Odt] 4 mg TL Q6H PRN #10 tab 07/06/20 10/30/21 Ondansetron Odt [Zofran] 4 mg TL Q6H PRN #10 tab 07/06/20 10/30/21 Spironolactone [Aldactone] 150 mg PO DAILY 07/06/20 10/30/21 buPROPion [Wellbutrin Xl] 150 mg PO DAILY 07/06/20 10/30/21 metFORMIN [Glucophage] 500 mg PO DAILY 07/06/20 10/30/21 Fluconazole [Diflucan] 150 mg PO Q3D 6 Days #2 tablet 09/14/21 10/30/21 Ondansetron Odt [Zofran] 4 mg TL Q6H PRN #10 tablet 09/14/21 10/30/21 Phenazopyridine HCl [Pyridium] 100 mg PO TID PRN #15 tablet 09/14/21 10/30/21 cephALEXin [Keflex] 500 mg PO TID 5 Days #15 cap 09/14/21 10/30/21 methocarbamoL [Robaxin] 500 mg PO Q6H PRN #20 tablet 10/30/21 oxyCODONE/ACET 5/325 [Percocet 5 1 - 2 each PO Q6H PRN #14 tablet 10/30/21 mg/325 mg] Oxycodone HCl/Acetaminophen 1 - 2 each PO Q6HR PRN #14 tab 09/19/22 [Oxycodone-Acetaminophen 5-325] Promethazine [Phenergan] 25 mg PO Q6H PRN #10 tab 09/19/22 - Allergies Allergies/Adverse Reactions: Allergies Allergy/AdvReac Type Severity Reaction Status Date / Time No Known Drug Allergies Allergy Verified 09/19/22 19:32 - Social History Does the pt smoke?: No Smoking Status: Never smoker Does the pt drink ETOH?: No Does the pt have substance abuse?: No - Immunizations Immunizations are current?: Yes - POLST Patient has POLST: No PD ED PE NORMAL - Vitals Vital signs reviewed: Yes - General General: Alert and oriented X 3, No acute distress, Well developed/nourished - HEENT HEENT: PERRL, EOMI, Moist mucous membranes - Neck Neck: Supple, no meningeal sign - Cardiac Cardiac: RRR, No murmur - Neuro Neuro: Alert and oriented X 3, 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, No motor deficit, No sensory de ficit, Normal speech Eye Opening: Spontaneous Motor: Obeys Commands Verbal: Oriented GCS Score: 15 Results - Vitals Vitals: Vital Signs - 24 hr 09/19/22 09/19/22 09/19/22 19:29 21:28 22:13 Temperature 36.1 C L Heart Rate 94 85 89 Respiratory 16 16 18 Rate Blood Pressure 135/89 H 124/76 121/77 O2 Saturation 95 96 100 Oxygen O2 Source Room air - Labs Labs: Laboratory Tests 09/19/22 09/19/22 20:58 20:58 WBC 9.3 RBC 4.73 Hgb 13.8 Hct 42.4 MCV 89.6 MCH 29.2 MCHC 32.5 RDW 13.0 Plt Count 295 MPV 9.8 Neut # (Auto) 5.4 Lymph # (Auto) 3.0 Millard # (Auto) 0.6 Eos # (Auto) 0.1 Baso # (Auto) 0.1 Absolute Nucleated RBC 0.00 Nucleated RBC % 0.0 Sodium 137 Potassium 3.8 Chloride 101 Carbon Dioxide 28 Anion Gap 8.0 BUN 12 Creatinine 0.9 Estimated GFR (MDRD) 74 L Glucose 110 H Calcium 9.2 PD Medical Decision Making - ED course Complexity details: reviewed results, re-evaluated patient, considered differential, d/w patient ED course: Given that patient's headache is similar to previous migraines, no imaging is indicated emergently at this time (such as CT head). However, her palpitations, fatigue, and dizziness are not typical for her migraines (per patient), and thus some basic blood work was performed (CBC, basic metabolic profile). She has nausea but no vomiting and is tolerating p.o. prior to arrival, and thus no IV is indicated. We discussed options for testing and treatment. After this discussion, shared decision to give 6 mg subcutaneous Imitrex, 30 mg IM Toradol, and 8 mg TL Zofran. Will reevaluate once the tests are resulted and adequate time for the above medications to have had effect. On reevaluation, patient says the medications have significantly improved her symptoms and she feels comfortable going home at this point. Her CBC and basic metabolic profile are essentially normal (the blood sugar is flagged as high but the result is only 110). The results of these tests were discussed with the patient. Patient says she still has Imitrex, Zofran, and Toradol at home. She says she is nearly out of the Percocet. I electronically submitted prescriptions for Percocet as well as Phenergan to her pharmacy of choice. Return precautions were discussed. I am prescribing a short course of short-acting opioid pain medication for this patient. 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 I have discussed that the opioids are for short term therapy only, and will not be refilled from the ED. Departure - Departure Disposition: Home, Self Care Clinical Impression: Migraine Qualifiers: Migraine type: unspecified Status migrainosus presence: without status migrainosus Intractability: not intractable Qualified Code(s): G43.909 - Migraine, unspecified, not intractable, without status migrainosus Condition: Good Instructions: ED Headache Migraine Prescriptions: Oxycodone HCl/Acetaminophen [Oxycodone-Acetaminophen 5-325] 1 - 2 each PO Q6HR PRN #14 tab PRN Reason: Headache Promethazine [Phenergan] 25 mg PO Q6H PRN #10 tab PRN Reason: Nausea / Vomiting Comments: The results of your blood test tonight were normal. As we discussed, your blood sugar was marked as high, but the result was 110 which is minimally above the normal (the upper limit of normal is 100, but, as we discussed, it is common to have a slight elevation in blood sugar when measured in the ER; a result of 110 does not need to be rechecked or followed-up). I have electronically submitted prescriptions for an antinausea medication (promethazine) and oxycodone with acetaminophen (narcotic/opiate pain medication) to the [facility] pharmacy in [place]. You can try the promethazine if the Zofran does not control your nausea/vomiting. Similarly, I would encourage you to try the oxycodone with acetaminophen only if Imitrex and Toradol are not controlling your headache. I am prescribing a short course of narcotic pain medication for you. These are potentially dangerous and addictive medications that should be used carefully. These medications may constipate you. Take an nlsj-hgy-ywupond stool softener (docusate) twice daily with plenty of water while taking these medications. If you go 24 hours without a bowel movement, take dwat-iqu-pyuyfhz miralax, per package instructions. Do not drink or drive while taking these medications. If you received narcotic or sedating medications while in the emergency depart ment, do not drive for 24 hours. Store this medication in a safe, secure place and out of reach of children. It is a violation of federal law to give or sell this medication to another person or to use in a manner other than prescribed. The ED will not refill narcotic prescriptions, including prescriptions lost or stolen. To dispose of unwanted medications: 1. [facility] [address] in [place] has a medication drop box. They accept prescription medications (in pill form) Monday through Monday 9:00 a.m. to 5:00 p.m. 2. The [facility] [employer] accepts prescription medications (in pill form only) for disposal year round. Call for more information. 3. Contact the [facility] for the next [facility] sponsored prescription drug collection event. , [phone], or [phone]; Discharge Date/Time: 09/19/22 22:40
[2022-09-19 21:04] LABS: BASOPHILS # (AUTO) 0.1 10^3/uL (0.0-0.1); BASOPHILS % (AUTO) 0.6 %; EOSINOPHILS # (AUTO) 0.1 10^3/uL (0.0-0.7); EOSINOPHILS % (AUTO) 1.2 %; HCT - HEMATOCRIT 42.4 % (37.0-47.0); HGB - HEMOGLOBIN 13.8 g/dL (12.0-16.0); LYMPHOCYTES % (AUTO) 32.7 %; MEAN CORPUSCULAR HEMOGLOBIN 29.2 pg (27.0-31.0); MEAN CORPUSCULAR HGB CONC 32.5 g/dL (32.0-36.0); MEAN CORPUSCULAR VOLUME 89.6 fL (81.0-99.0); MEAN PLATELET VOLUME 9.8 fL (7.9-10.8); MONOCYTES # (AUTO) 0.6 10^3/uL (0.0-1.0); MONOCYTES % (AUTO) 6.9 %; NEUTROPHILS # (AUTO) 5.4 10^3/uL (1.5-6.6); NEUTROPHILS % (AUTO) 58.3 %; PLT - PLATELET COUNT 295 10^3/uL (130-450); RED BLOOD COUNT 4.73 10^6/uL (4.20-5.40); WHITE BLOOD COUNT 9.3 x10^3/uL (4.8-10.8)
[2022-09-19 21:13] LABS: CALCIUM 9.2 mg/dL (8.5-10.3); CREATININE 0.9 mg/dL (0.4-1.0); POTASSIUM 3.8 mmol/L (3.5-5.0)
[2022-09-19] MEDS: ONDANSETRON ODT 4 MG TABLET TL STA (21:29)
[2022-09-19] MEDS: KETOROLAC 30 MG/ML VIAL IM STA (21:30)
[2022-09-19] MEDS: SUMAtriptan 6 MG/0.5 ML VIAL SUBQ STA (21:38)
[2022-09-19 22:14] VITALS: BP 121/77
== END 2022-09-19 22:40 | disposition home or self-care (01) ==
LOC: ED 19:20
DX: G43.909 Migraine, unspecified, not intractable, without status migrainosus (principal); I10 Essential (primary) hypertension; Z79.899 Other long term (current) drug therapy; Z79.84 Long term (current) use of oral hypoglycemic drugs
CPT/HCPCS: 36415; 80048; 85025; 96372; 99283; Q0162

== ENCOUNTER 2022-10-28 10:01 | Emergency (ER) | payer MEDICAID ==
[2022-10-28 10:17] VITALS: BP 137/87
[2022-10-28 10:44] LABS: BASOPHILS # (AUTO) 0.1 10^3/uL (0.0-0.1); BASOPHILS % (AUTO) 0.5 %; EOSINOPHILS # (AUTO) 0.1 10^3/uL (0.0-0.7); EOSINOPHILS % (AUTO) 1.1 %; HCT - HEMATOCRIT 42.4 % (37.0-47.0); HGB - HEMOGLOBIN 13.9 g/dL (12.0-16.0); LYMPHOCYTES # (AUTO) 2.9 10^3/uL (1.5-3.5); LYMPHOCYTES % (AUTO) 30.2 %; MEAN CORPUSCULAR HGB CONC 32.8 g/dL (32.0-36.0); MEAN CORPUSCULAR VOLUME 88.5 fL (81.0-99.0); MEAN PLATELET VOLUME 9.6 fL (7.9-10.8); MONOCYTES # (AUTO) 0.8 10^3/uL (0.0-1.0); MONOCYTES % (AUTO) 8.7 %; NEUTROPHILS # (AUTO) 5.6 10^3/uL (1.5-6.6); NEUTROPHILS % (AUTO) 59.2 %; PLT - PLATELET COUNT 288 10^3/uL (130-450); RED BLOOD COUNT 4.79 10^6/uL (4.20-5.40); RED CELL DISTRIBUTION WIDTH 12.8 % (12.0-15.0); WHITE BLOOD COUNT 9.5 x10^3/uL (4.8-10.8)
[2022-10-28 10:56] LABS: ALBUMIN/GLOBULIN RATIO 1.1 (1.0-2.2); BILIRUBIN,TOTAL 0.7 mg/dL (0.2-1.0); CALCIUM 9.5 mg/dL (8.5-10.3); CREATININE 0.9 mg/dL (0.4-1.0); POTASSIUM 4.4 mmol/L (3.5-5.0); TOTAL PROTEIN 7.7 g/dL (6.7-8.2)
[2022-10-28 11:13] LABS: BILIRUBIN,URINE NEGATIVE (NEGATIVE); GLUCOSE, URINE (UA) NEGATIVE (NEGATIVE); KETONES,URINE (UA) NEGATIVE (NEGATIVE); LEUKOCYTE ESTERASE, URINE NEGATIVE (NEGATIVE); NITRITE,URINE NEGATIVE (NEGATIVE); OCCULT BLOOD,URINE NEGATIVE (NEGATIVE); PH,URINE 7.5 PH (5.0-7.5); PROTEIN,URINE NEGATIVE (NEGATIVE); UROBILINOGEN,URINE 0.2 (NORMAL) E.U./dL (NORMAL)
[2022-10-28 11:16] LABS: CLARITY,URINE CLEAR (CLEAR); HCG UR QUAL NEGATIVE
[2022-10-28] MEDS ORDERED: iohexoL-300 100 ML VIAL ONE (11:32)
[2022-10-28] MEDS ORDERED: KETOROLAC 30 MG/ML VIAL IVP STA (11:52)
--- NOTE | 2022-10-28 13:00 | CT Report ---
PROCEDURE: ABDOMEN/PELVIS W INDICATIONS: diffuse lower abd pain CONTRAST: 100ml omni 300 TECHNIQUE: After the administration of intravenous contrast, 5 mm thick sections acquired from the diaphragms to the symphysis. 5 mm thick coronal and sagittal reformats were acquired. For radiation dose reducti on, the following was used: automated exposure control, adjustment of mA and/or kV according to jessica ent size. COMPARISON: CT abdomen/pelvis 01/16/2017 FINDINGS: Image quality: Excellent. Lung bases and heart: Unremarkable. Liver: Liver is diffusely hypoattenuating, most likely secondary to diffuse fatty infiltration. Gallbladder and biliary tree: Spleen: No splenomegaly. Pancreas: No pancreatic ductal dilation. Adrenals: 2 cm left adrenal nodule demonstrates indeterminant attenuation, and appears to be new when compared to the CT from 01/16/2017. No right adrenal nodule. Kidneys and ureters: No hydronephrosis. No renal cystic lesion which requires follow up. No solid mas s. Bowel and peritoneum: Colon is diffusely underdistended, which limits evaluation. Normal appendix. No signs of small bowel obstruction. Lymph nodes: No central or retroperitoneal adenopathy. Vessels: No infrarenal aortic aneurysm. PELVIS Reproductive organs: An intrauterine device is seen in expected position within the uterus. Bladder: No abnormal wall thickening, accounting for underdistension. Pelvic lymph nodes: No pelvic adenopathy by size criteria. Bones: No aggressive osseous abnormality. Other: Small fat-containing periumbilical hernia. IMPRESSION: 1.No definite acute inflammatory process in the abdomen or pelvis. 2.Mild bowel thickening in the colon is most likely related to underdistention, but a nonspecific col itis is not excluded. 3.Diffuse hepatic steatosis. 4.Left adrenal 2 cm indeterminate nodule, which is new when compared to the CT from 01/16/2017. Recomm end adrenal protocol MRI or CT for further evaluation. Reviewed by: Wood Meneses MD on 10/28/2022 12:59 PM PDT Approved by: Wood Meneses MD on 10/28/2022 12:59 PM PDT Station ID: [id number]
[2022-10-28] MEDS ORDERED: iohexoL-300 100 ML VIAL IVP ONE (13:03)
--- NOTE | 2022-10-28 13:24 | ED Physician Documentation ---
PD HPI ABD PAIN - Stated complaint Stated Complaint: FEMALE GI,NAUSEA - Chief complaint Chief Complaint: Abd Pain - History obtained from History obtained from: Patient - History of Present Illness Pain level max: 4 Pain level now: 3 Quality: Aching, Pain Associated symptoms: No: Fever, Hematemesis, Diarrhea, Constipation, Melena, Hematochezia, Dysuria - Additional information Additional information: 27-year-old female with several days of lower abdominal cramping. Nothing seems to really make it better or worse. She states she has felt like she has been constipated as well. No fevers. No chills. Has had some nausea but no vomiting. Denies any possibility of . No urinary symptoms. No vaginal bleeding or discharge. 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, Miscarriage(s) : None HEENT: None Psych: Depression, Anxiety, Bipolar disorder Musculoskeletal: Fibromyalgia, Other Derm: Eczema - Past Surgical History Past Surgical History: Yes Ortho: Other - Present Medications Home Medications: Ambulatory Orders Medication Instructions Recorded Confirmed Omeprazole [PriLOSEC] 20 mg ORAL DAILY 12/13/15 10/30/21 Propranolol [Inderal] 20 mg PO BID 10/31/16 10/30/21 Lamotrigine [Lamotrigine ER] 200 mg PO BID 01/16/17 10/30/21 Dextroamphetamine/Amphetamine 20 mg PO TID 07/06/20 10/30/21 [Adderall 20 mg Tablet] HYDROcod/ACETAM 5/325 [[place] 5/325] 1 - 2 ea PO Q6H PRN #14 tab 07/06/20 10/30/21 Ibuprofen [Motrin] 600 mg PO Q6H PRN #30 tab 07/06/20 10/30/21 Ondansetron Odt [Zofran Odt] 4 mg TL Q6H PRN #10 tab 07/06/20 10/30/21 Ondansetron Odt [Zofran] 4 mg TL Q6H PRN #10 tab 07/06/20 10/30/21 Spironolactone [Aldactone] 150 mg PO DAILY 07/06/20 10/30/21 buPROPion [Wellbutrin Xl] 150 mg PO DAILY 07/06/20 10/30/21 metFORMIN [Glucophage] 500 mg PO DAILY 07/06/20 10/30/21 Fluconazole [Diflucan] 150 mg PO Q3D 6 Days #2 tablet 09/14/21 10/30/21 Ondansetron Odt [Zofran] 4 mg TL Q6H PRN #10 tablet 09/14/21 10/30/21 Phenazopyridine HCl [Pyridium] 100 mg PO TID PRN #15 tablet 09/14/21 10/30/21 cephALEXin [Keflex] 500 mg PO TID 5 Days #15 cap 09/14/21 10/30/21 methocarbamoL [Robaxin] 500 mg PO Q6H PRN #20 tablet 10/30/21 oxyCODONE/ACET 5/325 [Percocet 5 1 - 2 each PO Q6H PRN #14 tablet 10/30/21 mg/325 mg] Oxycodone HCl/Acetaminophen 1 - 2 each PO Q6HR PRN #14 tab 09/19/22 [Oxycodone-Acetaminophen 5-325] Promethazine [Phenergan] 25 mg PO Q6H PRN #10 tab 09/19/22 Promethazine [Phenergan] 25 mg PO Q6H PRN #10 tab 10/28/22 - Allergies Allergies/Adverse Reactions: Allergies Allergy/AdvReac Type Severity Reaction Status Date / Time No Known Drug Allergies Allergy Verified 10/28/22 10:15 - Social History Does the pt smoke?: No Smoking Status: Never smoker Does the pt drink ETOH?: No Does the pt have substance abuse?: No - Immunizations Immunizations are current?: Yes - POLST Patient has POLST: No PD ED PE NORMAL - Vitals Vital signs reviewed: Yes - General General: Alert and oriented X 3, No acute distress - HEENT HEENT: Moist mucous membranes - Neck Neck: Supple, no meningeal sign - Cardiac Cardiac: RRR - Respiratory Respiratory: No respiratory distress, Clear bilaterally - Abdomen Abdomen: Soft, Non tender, Non distended - Back Back: No CVA TTP, No spinal TTP - Derm Derm: Warm and dry - Neuro Neuro: Alert and oriented X 3 - Psych Psych: Normal mood, Normal affect Results - Vitals Vitals: Vital Signs - 24 hr 10/28/22 10:13 Temperature 36.4 C L Heart Rate 84 Respiratory 16 Rate Blood Pressure 137/87 H O2 Saturation 97 Oxygen O2 Source Room air - Labs Labs: Laboratory Tests 10/28/22 10/28/22 10/28/22 10:41 10:41 11:00 WBC 9.5 RBC 4.79 Hgb 13.9 Hct 42.4 MCV 88.5 MCH 29.0 MCHC 32.8 RDW 12.8 Plt Count 288 MPV 9.6 Neut # (Auto) 5.6 Lymph # (Auto) 2.9 Petroleum # (Auto) 0.8 Eos # (Auto) 0.1 Baso # (Auto) 0.1 Absolute Nucleated RBC 0.00 Nucleated RBC % 0.0 Sodium 139 Potassium 4.4 Chloride 103 Carbon Dioxide 28 Anion Gap 8.0 BUN 7 Creatinine 0.9 Estimated GFR (MDRD) 74 L Glucose 96 Calcium 9.5 Total Bilirubin 0.7 AST 31 ALT 36 Alkaline Phosphatase 78 Total Protein 7.7 Albumin 4.0 Globulin 3.7 Albumin/Globulin Ratio 1.1 Lipase 30 Urine Color YELLOW Urine Clarity CLEAR Urine pH 7.5 Ur Specific [place] 1.010 Urine Protein NEGATIVE Urine Glucose (UA) NEGATIVE Urine Ketones NEGATIVE Urine Occult Blood NEGATIVE Urine Nitrite NEGATIVE Urine Bilirubin NEGATIVE Urine Urobilinogen 0.2 (NORMAL) Ur Leukocyte Esterase NEGATIVE Ur Microscopic Review NOT INDICATED Urine Culture Comments NOT INDICATED Urine HCG, Qual NEGATIVE - Rads (name of study) CT abd/pelvis Relevant Findings:: Final report received, See rad report PD Medical Decision Making - ED course Complexity details: reviewed results, re-evaluated patient, considered differential, d/w patient, d/w family ED course: 27-year-old female presents the emergency department lower abdominal pain. CT does not show any acute abnormalities. There is a question of a small adrenal nodule, she will follow-up with her doctor as an outpatient for this. No significant lab abnormalities. No vaginal bleeding or discharge. Abdomen is soft, nontender nondistended. No fevers. No chills. We will have her follow- up with her PCP for further care. Patient does request some medication for nausea besides Zofran. Will prescribe Phenergan. Possible viral illness? Patient counseled regarding signs and symptoms for which I believe and urgent re-evaluation would be necessary. Patient with good understanding of and agreement to plan and is comfortable going home at this time This document was made in part using voice recognition software. While efforts are made to proofread this document, sound alike and grammatical errors may occur. Departure - Departure Disposition: 01 Home, Self Care Clinical Impression: Abdominal pain Qualifiers: Abdominal location: unspecified location Qualified Code(s): R10.9 - Unspecified abdominal pain Condition: Good Instructions: ED Abdominal Pain Female Non-Specific Abdominal Pain Follow-Up: your,doctor in 1 week [Other] Prescriptions: Promethazine [Phenergan] 25 mg PO Q6H PRN #10 tab PRN Reason: Nausea / Vomiting Comments: Please follow-up with your doctor for further care. Please return if you worsen. The cause of your symptoms is unclear today. Your prescription was sent to [facility] in [place]. Your CT scan does show a 2 cm left adrenal nodule, new from CT on 01/16/2017. Radiology recommends an adrenal protocol MRI or CT for further evaluation. This should be ordered by your doctor for follow- up. Please schedule this with your doctor. PROCEDURE: ABDOMEN/PELVIS W INDICATIONS: diffuse lower abd pain CONTRAST: 100ml omni 300 TECHNIQUE: After the administration of intravenous contrast, 5 mm thick sections acquired from the diaphragms to the symphysis. 5 mm thick coronal and sagittal reformats were acquired. For radiation dose reduction, the following was used: automated exposure control, adjustment of mA and/or kV according to patient size. COMPARISON: CT abdomen/pelvis 01/16/2017 FINDINGS: Image quality: Excellent. Lung bases and heart: Unremarkable. Liver: Liver is diffusely hypoattenuating, most likely secondary to diffuse fatty infiltration. Gallbladder and biliary tree: Spleen: No splenomegaly. Pancreas: No pancreatic ductal dilation. Adrenals: 2 cm left adrenal nodule demonstrates indeterminant attenuation, and appears to be new when compared to the CT from 01/16/2017. No right adrenal nodule. Kidneys and ureters: No hydronephrosis. No renal cystic lesion which requires follow up. No solid mass. Bowel and peritoneum: Colon is diffusely underdistended, which limits evaluation. Normal appendix. No signs of small bowel obstruction. Lymph nodes: No central or retroperitoneal adenopathy. Vessels: No infrarenal aortic aneurysm. PELVIS Reproductive organs: An intrauterine device is seen in expected position within the uterus. Bladder: No abnormal wall thickening, accounting for underdistension. Pelvic lymph nodes: No pelvic adenopathy by size criteria. Bones: No aggressive osseous abnormality. Other: Small fat-containing periumbilical hernia. IMPRESSION: 1.No definite acute inflammatory process in the abdomen or pelvis. 2.Mild bowel thickening in the colon is most likely related to underdistention, but a nonspecific colitis is not excluded. 3.Diffuse hepatic steatosis. 4.Left adrenal 2 cm indeterminate nodule, which is new when compared to the CT from 01/16/2017. Recommend adrenal protocol MRI or CT for further evaluation. Discharge Date/Time: 10/28/22 13:37
== END 2022-10-28 13:37 | disposition home or self-care (01) ==
LOC: ED 10:01
DX: R10.30 Lower abdominal pain, unspecified (principal)
CPT/HCPCS: 36415; 74177; 80053; 81003; 81025; 83690; 85025; 96374; 99283; 99284; Q9967; 81001; 87086

== ENCOUNTER 2022-11-10 20:04 | Emergency (ER) | payer MEDICAID ==
[2022-11-10] MEDS ORDERED: MELOXICAM 7.5 MG TABLET PO STA (20:32)
--- NOTE | 2022-11-10 20:56 | XRAY Report ---
PROCEDURE: Knee 4 View RT INDICATIONS: R knee pain s/p walking down stairs TECHNIQUE: 3 views of the right knee were acquired. COMPARISON: None. FINDINGS: Bones: No fractures or dislocations. No suspicious bony lesions. Soft tissues: No knee joint effusion. No suspicious soft tissue calcifications or masses. IMPRESSION: No acute bony abnormality. Reviewed by: Sanjeev Chávez MD on 11/10/2022 8:54 PM PDT Approved by: Sanjeev Chávez MD on 11/10/2022 8:54 PM PDT Station ID: [id number]
--- NOTE | 2022-11-10 21:16 | ED Physician Documentation ---
PD HPI LOWER EXT INJURY - Stated complaint Stated Complaint: R KNEE INJ - Chief complaint Chief Complaint: Trauma Ext - History obtained from History obtained from: Patient - History of Present Illness PD HPI LOW EXT INJURY LOCATION: Right, Knee Where injury occurred: Home Pain level max: 6 Pain level now: 5 Improved by: Rest Worsened by: Moving, Palpating Associated symptoms: Swelling. No: Weakness, Numbness, Tingling, Discolored Contributing factors: No: Anticoagulated, Prior ortho surgery Recently seen: Not recently seen - Additional information Additional information: 27-year-old female was walking down the stairs today when she felt a pop in her right knee and felt her knee give out. Now she complains of pain with walking. 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, Miscarriage(s) : None HEENT: None Psych: Depression, Anxiety, Bipolar disorder Musculoskeletal: Fibromyalgia, Other Derm: Eczema - Past Surgical History Past Surgical History: Yes Ortho: Other - Present Medications Home Medications: Ambulatory Orders Medication Instructions Recorded Confirmed Omeprazole [PriLOSEC] 20 mg ORAL DAILY 12/13/15 10/30/21 Propranolol [Inderal] 20 mg PO BID 10/31/16 10/30/21 Lamotrigine [Lamotrigine ER] 200 mg PO BID 01/16/17 10/30/21 Dextroamphetamine/Amphetamine 20 mg PO TID 07/06/20 10/30/21 [Adderall 20 mg Tablet] HYDROcod/ACETAM 5/325 [[place] 5/325] 1 - 2 ea PO Q6H PRN #14 tab 07/06/20 10/30/21 Ibuprofen [Motrin] 600 mg PO Q6H PRN #30 tab 07/06/20 10/30/21 Ondansetron Odt [Zofran Odt] 4 mg TL Q6H PRN #10 tab 07/06/20 10/30/21 Ondansetron Odt [Zofran] 4 mg TL Q6H PRN #10 tab 07/06/20 10/30/21 Spironolactone [Aldactone] 150 mg PO DAILY 07/06/20 10/30/21 buPROPion [Wellbutrin Xl] 150 mg PO DAILY 07/06/20 10/30/21 metFORMIN [Glucophage] 500 mg PO DAILY 07/06/20 10/30/21 Fluconazole [Diflucan] 150 mg PO Q3D 6 Days #2 tablet 09/14/21 10/30/21 Ondansetron Odt [Zofran] 4 mg TL Q6H PRN #10 tablet 09/14/21 10/30/21 Phenazopyridine HCl [Pyridium] 100 mg PO TID PRN #15 tablet 09/14/21 10/30/21 cephALEXin [Keflex] 500 mg PO TID 5 Days #15 cap 09/14/21 10/30/21 methocarbamoL [Robaxin] 500 mg PO Q6H PRN #20 tablet 10/30/21 oxyCODONE/ACET 5/325 [Percocet 5 1 - 2 each PO Q6H PRN #14 tablet 10/30/21 mg/325 mg] Oxycodone HCl/Acetaminophen 1 - 2 each PO Q6HR PRN #14 tab 09/19/22 [Oxycodone-Acetaminophen 5-325] Promethazine [Phenergan] 25 mg PO Q6H PRN #10 tab 09/19/22 Promethazine [Phenergan] 25 mg PO Q6H PRN #10 tab 10/28/22 Oxycodone HCl/Acetaminophen 1 - 2 each PO Q6H PRN #10 tablet 11/10/22 [Percocet 5-325 mg Tablet] MDD 6 tabs - Allergies Allergies/Adverse Reactions: Allergies Allergy/AdvReac Type Severity Reaction Status Date / Time No Known Drug Allergies Allergy Verified 11/10/22 20:06 - Social History Does the pt smoke?: No Smoking Status: Never smoker Does the pt drink ETOH?: No Does the pt have substance abuse?: No - Immunizations Immunizations are current?: Yes - POLST Patient has POLST: No PD ED PE NORMAL - Vitals Vital signs reviewed: Yes - General General: Alert and oriented X 3, No acute distress - HEENT HEENT: PERRL, Moist mucous membranes - Neck Neck: Supple, no meningeal sign - Derm Derm: Warm and dry - Extremities Extremities: Other (R knee - ACL, MCL, PCL, LCL are intact. Neurovascular intact. Mild tenderness on the lateral joint line. No effusion. Full range of motion of the knee.) - Neuro Neuro: Alert and oriented X 3 - Psych Psych: Normal mood, Normal affect Results - Vitals Vitals: Vital Signs - 24 hr 11/10/22 11/10/22 20:06 21:23 Temperature 36.5 C Heart Rate 100 95 Respiratory 16 17 Rate Blood Pressure 140/100 H 137/94 H O2 Saturation 98 99 Oxygen O2 Source Room air - Rads (name of study) Right knee x-ray Relevant Findings:: Final report received, See rad report PD Medical Decision Making - ED course Complexity details: reviewed results, re-evaluated patient, considered differential, d/w patient ED course: 27-year-old female with what appears to be a right knee sprain. She was given meloxicam here. She is driving herself. We did discuss knee braces and crutches, patient declines both of these. She states she has crutches at home. Will prescribe pain medication for home. I will have her follow-up with her PCP in 1 week for repeat evaluation. No acute findings on x-ray. Patient counseled regarding signs and symptoms for which I believe and urgent re-evaluation would be necessary. Patient with good understanding of and agreement to plan and is comfortable going home at this time This document was made in part using voice recognition software. While efforts are made to proofread this document, sound alike and grammatical errors may occur. Departure - Departure Disposition: 01 Home, Self Care Clinical Impression: Knee sprain Qualifiers: Encounter type: initial encounter Involved ligament of knee: unspecified ligament Laterality: right Qualified Code(s): S83.91XA - Sprain of unspecified site of right knee, initial encounter Condition: Good Instructions: ED Sprain Knee Follow-Up: your,doctor in 1 week [Other] Prescriptions: Oxycodone HCl/Acetaminophen [Percocet 5-325 mg Tablet] 1 - 2 each PO Q6H PRN #10 tablet MDD 6 tabs PRN Reason: pain Comments: Your x-ray does not show any acute abnormalities today. You can use crutches to help at home with weightbearing. Please follow-up with your doctor in 1 week for repeat evaluation. Your prescriptions were sent to the [facility] pharmacy in [place]. I am prescribing a short course of narcotic pain medication for you. These are potentially dangerous and addictive medications that should be used carefully. These medications may constipate you. Take an [id number]-aphmfbz stool softener (docusate) twice daily with plenty of water while taking these medications. If you go 24 hours without a bowel movement, take [id number] miralax, per package instructions. Do not drink or drive while taking these medications. If you received narcotic or sedating medications while in the emergency department, do not drive for 24 hours. Store this medication in a safe, secure place and out of reach of children. It is a violation of federal law to give or sell this medication to another person or to use in a manner other than prescribed. The ED will not refill narcotic prescriptions, including prescriptions lost or stolen. To dispose of unwanted medications: 1. [facility] [address] in [place] has a medication drop box. They accept prescription medications (in pill form) Monday through Monday 9:00 a.m. to 5:00 p.m. 2. The [facility] accepts prescription medications (in pill form only) for disposal year round. Call for more informati on. 3. Contact the [facility] for the next [facility] sponsored prescription drug collection event. , [phone], or [phone]; Discharge Date/Time: 11/10/22 21:24
[2022-11-10 21:28] VITALS: BP 137/94
== END 2022-11-10 21:24 | disposition home or self-care (01) ==
LOC: ED 20:04
DX: S83.91XA Sprain of unspecified site of right knee, initial encounter (principal); X58.XXXA Exposure to other specified factors, initial encounter; I10 Essential (primary) hypertension
CPT/HCPCS: 73564; 99283; A9270

== ENCOUNTER 2023-04-07 08:00 | Outpatient (CLI) | payer MEDICAID ==
[2023-04-07 21:36] LABS: BACTERIAL VAGINOSIS DNA NEGATIVE (NEGATIVE); CANDIDA GLABRATA DNA NEGATIVE (NEGATIVE); CANDIDA GROUP DNA POSITIVE (NEGATIVE); CANDIDA KRUSEI DNA NEGATIVE (NEGATIVE); TRICHOMONAS VAGINALIS DNA NEGATIVE (NEGATIVE)
== END 2023-04-07 23:59 | disposition home or self-care (01) ==
LOC: LAB.WC 08:00
PROVIDERS: ATTEND Obstetrics & Gynecology
DX: N89.8 Other specified noninflammatory disorders of vagina (principal)
CPT/HCPCS: 81514

== ENCOUNTER 2023-12-11 18:52 | Emergency (ER) | payer MEDICAID ==
[2023-12-11 19:11] VITALS: O2SAT 99
--- NOTE | 2023-12-11 19:31 | ED Physician Documentation ---
PD HPI MAJOR TRAUMA - Stated complaint Stated Complaint: FALL - Chief complaint Chief Complaint: Trauma Ch/Bk - History obtained from History obtained from: Patient - Additional information Additional information: She was on the treadmill last night, fell backwards and hit her butt on the ground. She did hit her head, but she has no headache no loss of consciousness. No possibility of . The pain in her rear-ended toe is severe. 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, Miscarriage(s) : None HEENT: None Psych: Depression, Anxiety, Bipolar disorder, ADD/ADHD, Post traumatic stress disorder Musculoskeletal: Fibromyalgia, Other Derm: Eczema - Past Surgical History Past Surgical History: Yes Ortho: Other - Present Medications Home Medications: Ambulatory Orders Medication Instructions Recorded Confirmed Omeprazole [PriLOSEC] 20 mg ORAL DAILY 12/13/15 10/30/21 Propranolol [Inderal] 20 mg PO BID 10/31/16 10/30/21 Lamotrigine [Lamotrigine ER] 200 mg PO BID 01/16/17 10/30/21 Dextroamphetamine/Amphetamine 20 mg PO TID 07/06/20 10/30/21 [Adderall 20 mg Tablet] HYDROcod/ACETAM 5/325 [[place] 5/325] 1 - 2 ea PO Q6H PRN #14 tab 07/06/20 10/30/21 Ibuprofen [Motrin] 600 mg PO Q6H PRN #30 tab 07/06/20 10/30/21 Ondansetron Odt [Zofran Odt] 4 mg TL Q6H PRN #10 tab 07/06/20 10/30/21 Ondansetron Odt [Zofran] 4 mg TL Q6H PRN #10 tab 07/06/20 10/30/21 Spironolactone [Aldactone] 150 mg PO DAILY 07/06/20 10/30/21 buPROPion [Wellbutrin Xl] 150 mg PO DAILY 07/06/20 10/30/21 metFORMIN [Glucophage] 500 mg PO DAILY 07/06/20 10/30/21 Fluconazole [Diflucan] 150 mg PO Q3D 6 Days #2 tablet 09/14/21 10/30/21 Ondansetron Odt [Zofran] 4 mg TL Q6H PRN #10 tablet 09/14/21 10/30/21 Phenazopyridine HCl [Pyridium] 100 mg PO TID PRN #15 tablet 09/14/21 10/30/21 cephALEXin [Keflex] 500 mg PO TID 5 Days #15 cap 09/14/21 10/30/21 methocarbamoL [Robaxin] 500 mg PO Q6H PRN #20 tablet 10/30/21 oxyCODONE/ACET 5/325 [Percocet 5 1 - 2 each PO Q6H PRN #14 tablet 10/30/21 mg/325 mg] Oxycodone HCl/Acetaminophen 1 - 2 each PO Q6HR PRN #14 tab 09/19/22 [Oxycodone-Acetaminophen 5-325] Promethazine [Phenergan] 25 mg PO Q6H PRN #10 tab 09/19/22 Promethazine [Phenergan] 25 mg PO Q6H PRN #10 tab 10/28/22 Oxycodone HCl/Acetaminophen 1 - 2 each PO Q6H PRN #10 tablet 11/10/22 [Percocet 5-325 mg Tablet] MDD 6 tabs HYDROcod/ACETAM 5/325 [[place] 5/325] 1 - 2 tab PO Q6H PRN #15 tablet 12/11/23 - Allergies Allergies/Adverse Reactions: Allergies Allergy/AdvReac Type Severity Reaction Status Date / Time No Known Drug Allergies Allergy Verified 12/11/23 19:00 - Social History Does the pt smoke?: No Smoking Status: Never smoker Does the pt drink ETOH?: No Does the pt have substance abuse?: No - Immunizations Immunizations are current?: Yes - POLST Patient has POLST: No PD ED PE NORMAL - Vitals Vital signs reviewed: Yes - General General: Alert and oriented X 3, No acute distress - HEENT HEENT: PERRL, EOMI - Neck Neck: No bony TTP - Back Back: Other (Tender over the lower sacrum and coccyx. No other spinal tenderness.) Results - Vitals Vitals: Vital Signs - 24 hr 12/11/23 19:01 Temperature 36.5 C Heart Rate 82 Respiratory 16 Rate Blood Pressure 160/90 H O2 Saturation 99 Oxygen O2 Source Room air - Rads (name of study) Sacral XR-NAD Relevant Findings:: Final report received, EMP independent interpretation of test PD Medical Decision Making - ED course ED course: She has isolated tailbone injury after a fall. Relevant radiography was negative but discussed with her that hairline fractures are often difficult to see and she may still have a hairline fracture but that would be treated conservatively. Departure - Departure Disposition: 01 Home, Self Care Clinical Impression: Sacral contusion Qualifiers: Encounter type: initial encounter Qualified Code(s): S30.0XXA - Contusion of lower back and pelvis, initial encounter Condition: Good Record reviewed to determine appropriate education?: Yes Instructions: ED Contusion Sacrum Coccyx Prescriptions: HYDROcod/ACETAM 5/325 [[place] 5/325] 1 - 2 tab PO Q6H PRN #15 tablet PRN Reason: Pain Comments: [facility] [place]. The x-ray was negative, but as discussed, hairline fractures of the sacrum and coccyx can be very difficult to see and it is certainly possible that you could have a hairline fracture there. It would not change director per se, you can ice the area, use a donut pillow. Follow-up with your doctor in a week if not improving for recheck. Return for new or worsening symptoms. I am prescribing a short course of narcotic pain medication for you. These are potentially dangerous and addictive medications that should be used carefully. These medications may constipate you. Take an fohs-yys-qldurxc stool softener (docusate) twice daily with plenty of water while taking these medications. If you go 24 hours without a bowel movement, take nuxz-msf-tnwlnan miralax, per package instructions. Do not drink or drive while taking these medications. If you received narcotic or sedating medications while in the emergency department, do not drive for 24 hours. Store this medication in a safe, secure place and out of reach of children. It is a violation of federal law to give or sell this medication to another person or to use in a manner other than prescribed. The ED will not refill narcotic prescriptions, including prescriptions lost or stolen. To dispose of unwanted medications: 1. [facility]'s Office provides a drop box for medication in pill form only (no liquids) 8:00 am to 4:30 p.m. Monday-Monday in the lobby of the [facility], [address] Empty pills into ziplock bag before disposal. Call [phone] for information. 2.[employer] is a free service available to all [facility] residents. Go to [email or web address] Note that many narcotic pain relievers also contain Tylenol/acetaminophen. Please ensure that your total dose of acetaminophen from all sources does not exceed 3 g (3000 mg) per day. Forms: PCP List
[2023-12-11] MEDS: IBUPROFEN 800 MG TABLET PO STA (19:39)
--- NOTE | 2023-12-11 20:22 | XRAY Report ---
PROCEDURE: Sacrum/Coccyx INDICATIONS: back inj TECHNIQUE: 2 views of the sacrum and coccyx acquired. COMPARISON: None. FINDINGS: Bones: No fractures or dislocations. No suspicious bony lesions. Soft tissues: Visualized bowel gas pattern is normal. No suspicious soft tissue densities. IMPRESSION: No acute bony abnormality. Reviewed by: Edu Brooks MD on 12/11/2023 8:20 PM PDT Approved by: Edu Brooks MD on 12/11/2023 8:20 PM PDT Station ID: [id number]
[2023-12-11] MEDS: HYDROcod/ACET 5/325 Prepack 4 PO STA (20:37)
[2023-12-11 20:51] VITALS: BP 122/68
== END 2023-12-11 20:38 | disposition home or self-care (01) ==
LOC: ED 18:52
DX: S30.0XXA Contusion of lower back and pelvis, initial encounter (principal); W18.39XA Other fall on same level, initial encounter; Y93.A1 Activity, exercise machines primarily for cardiorespiratory conditioning; I10 Essential (primary) hypertension; J45.909 Unspecified asthma, uncomplicated; K50.90 Crohn's disease, unspecified, without complications; M79.7 Fibromyalgia; Z79.84 Long term (current) use of oral hypoglycemic drugs; Z79.899 Other long term (current) drug therapy
CPT/HCPCS: 72220; 99283; A9270